=== PATIENT | male | born 1945 | race Caucasian/White ===

== ENCOUNTER 2020-04-11 19:23 | Emergency (ER) | payer OTHER, BC ==
--- OUTSIDE RECORDS SUMMARY | 2020-04-11 19:26 | XMS REPORT | Clinical Summary ---
:1945 Author Organization [facility] Address [address] [place] [id number] Care Team Providers Name Role Phone Asked, No Pcp Primary Care Provider Unavailable Allergies Not on File Medications Not on file Active Problems Not on file Social History Tobacco Use Types Packs/Day Years Used Date Never Assessed Sex Assigned at Date Recorded Not on file Last Filed Vital Signs Not on file Plan of Treatment Health Maintenance Due Date Last Done Comments COLONOSCOPY SCREENING 1996 SHINGLES VACCINES (#1) 1996 65+ PNEUMOCOCCAL VACCINE (1 of 1 - PPSV23) 2011 INFLUENZA VACCINE 12/22/2019 Results Not on fileafter 04/11/2019 Advance Directives For more information, please contact: [phone] Type Date Recorded Patient [employer] Explanati on Advance Directives, Living Will and Medical Power of Trimmer Machine
--- OUTSIDE RECORDS SUMMARY | 2020-04-11 19:27 | XMS REPORT | Continuity of Care Document ---
:1945 Author Organization [facility] t Address [facility] Brothers. [address] [place] [address] Care Team Providers Name Role Phone FLAKITO Primary Care Physician Unavailable SYSTEM, NOT IN Attending Clinician Unavailable KENNEDY Attending Clinician Unavailable Kennedy CARRILLO Attending Clinician Wilma OLMOS Attending Clinician Flakito CARRILLO Attending Clinician FLAKITO Attending Clinician Unavailable Elo DARDEN Attending Clinician Unavailable Rogerio JUAREZ Attending Clinician CLAUDIA Attending Clinician Unavailable Tiffany DARDEN, M Attending Clinician Unavailable Rolf DARDEN, S Attending Clinician Unavailable Jaquan MURRAY Attending Clinician Wild [place] Attending Clinician Andrea RN Attending Clinician Unavailable Kelli DARDEN, T Attending Clinician Unavailable Claudia OLMOS Attending Clinician Unavailable Payers Payer Name Policy Type Policy Number Effective Date Expiration Date S mel[place] POS [id number] 2011 00:00:00 MEDICARE PART A [id number] 2011 AND B 00:00:00 Problems Condition Condition Condition Status Onset Resolution Last Treating Co mments Source Name Details Category Date Date Treatment Clinician Date Other Other Disease Active pancytopen pancytopen 7-12 An derso ia ia 00:00: n 00 Allergies, Adverse Reactions, Alerts Allergy Allergy Status Severity Reaction(s) Onset Inactive Treating Comm ents Source Name Type Date Date Clinician No Known DA Active [facility] Allergie 5-31 Clear s 00:00: [place] 00 [facility] Family History Family Member Diagnosis Comments Start Date Stop Date Source Natural brother -Genitourinary (Bladder, MD Mares Kidney, Prostate, Testicle) Natural sister -Breast cancer Social History Social Habit Start Date Stop Date Quantity Comments Source Sex Assigned At MD James on Cigarettes smoked 2015-12-30 2015-12-30 MD Sotero reynolds current (pack per 00:00:00 00:00:00 day) - Reported Cigarette pack-years 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 History of tobacco 1962 1979 Current smoker MD Mares use 00:00:00 00:00:00 Smoking Status Start Date Stop Date Source Former smoker 2015-12-30 00:00:00 2015-12-30 00:00:00 MD Goetz son Medications Ordered Filled Start Stop Current Ordering Indication Dosage Frequency Signature Comments Components Source Medication Medication Date Date Medication? Clinician (SIG) Name Name UNABLE TO 2020-0 Yes 4{capsu Take 4 MD FIND 9-03 le} capsules Anderso 21:13: by mouth. n 48 Med Name: Feliz fruit SAW 2020-0 Yes 2{capsu Take 2 MD PALMETTO 9-03 le} capsules Anderso ORAL 21:13: by mouth n 31 daily. MAGNESIUM 2020-0 Yes 10mg Take 10 mg MD CHLORIDE 9-03 by mouth Anderso ORAL 21:13: daily. n 31 cholecalcif 2020-0 Yes 400U Take 400 MD melinda, 9-03 Units by Anderso vitamin D3, 21:13: mouth n 400 units 31 daily. tablet chromium 2020-0 Yes 1{capsu Take 1 MD picolinate 9-03 le} capsule by And erso 200 mcg cap 21:13: mouth n 31 daily. beta 2020-0 Yes 50163T Take carotene 01-23 25,000 Anderso 00693 UNIT 21:13: Units by n capsule 31 mouth daily. multivitami 2020-0 Yes 1{capsu Take 1 M D n capsule 01-23 le} capsule by Sotero rso 21:13: mouth n 31 daily. triamcinolo 2020-0 Yes 1{appli Apply 1 MD ne 6-25 cation} applicatio Jacob o (KENALOG) 00:00: n n 0.1% cream 00 topically to affected area(s) as needed. levoFLOXaci 2020-0 Yes Other 500mg Take 1 MD n 5-20 pancytopeni tablet Jacob o (Levaquin) 00:00: a (500 mg) n 500 mg 00 by mouth tablet daily. fluconazole 2020-0 Yes Other 200mg Take 1 MD (DIFLUCAN) 5-20 pancytopeni tablet Anderso 200 mg 00:00: a (200 mg) n tablet 00 by mouth daily. valACYclovi 2020-0 Yes Other 500mg Take 1 MD r (VALTREX) 5-20 pancytopeni tablet Anderso 500 mg 00:00: a (500 mg) n tablet 00 by mouth daily. 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 Body weight 2019-05-08 15:11:29 86.4 kg MD Bishnu enriquez BMI 2019-05-08 15:11:29 28.64 kg/m2 MD Bishnu enriquez Oxygen saturation in 2019-05-08 15:11:29 98 /min MD Mares Arterial blood by Pulse oximetry Procedures Procedure Date / Time Performed Performing Clinician Sour e TOTAL PROTEIN 2019-05-08 14:31:00 Lisa Grubbs MD ALBUMIN LEVEL 2019-05-08 14:31:00 Lisa Grubbs MD CALCIUM LEVEL TOTAL 2019-05-08 14:31:00 Lisa Grubbs MD Bishnu son PHOSPHORUS LEVEL 2019-05-08 14:31:00 Lisa Grubbs MD GLUCOSE, RANDOM 2019-05-08 14:31:00 Lisa Grubbs MD BLOOD UREA NITROGEN 2019-05-08 14:31:00 Lisa Grubbs MD Bishnu son SERUM CREATININE 2019-05-08 14:31:00 Lisa Grubbs MD URIC ACID 2019-05-08 14:31:00 Lisa Grubbs MD FRACTIONATED BILIRUBIN 2019-05-08 14:31:00 Lisa Grubbs MD derson ALKALINE PHOSPHATASE 2019-05-08 14:31:00 Lisa Grubbs MD Sotero rson LACTATE DEHYDROGENASE 2019-05-08 14:31:00 Lisa Grubbs MD And erson ALANINE AMINOTRANSFERASE 2019-05-08 14:31:00 Lisa Grubbs MD ELECTROLYTE PANEL 2019-05-08 14:31:00 Lisa Grubbs MD MAGNESIUM LEVEL 2019-05-08 14:31:00 Lisa Grubbs MD ASPARTATE AMINOTRANSFERASE 2019-05-08 14:31:00 Lisa Grubbs TYPE AND SCREEN 2019-05-08 14:31:00 Lisa Grubbs MD COMPLETE BLOOD COUNT W/ 2019-05-08 14:31:00 Lisa Grubbs MD nderson DIFFERENTIAL SERUM CREATININE 2019-05-08 14:31:00 Silvina Fraga MD Jacob on .GLOMERULAR FILTRATION RATE 2019-05-08 14:31:00 Rashid Fraga MD Results CBC 2019-05-08 14:31:00 Silvina Fraga MD MANUAL DIFFERENTIAL 2019-05-08 14:31:00 Silvina Fraga MD And erson ABORH 2019-05-08 14:31:00 Silvina Fraga MD ANTIBODY SCREEN 2019-05-08 14:31:00 Silvina Fraga MD Andderrek pérez CLOT EXPIRATION DATE 2019-05-08 14:31:00 Silvina Fraga MD TMP INTERPRETATION ANTIBODY 2019-05-08 14:31:00 Rashid Fraga MD Vishnu SCREEN NEGATIVE Plan of Care Planned Activity Planned Date Details Comments Source Future Scheduled 2019-12-22 INFLUENZA VACCINE [facility] 00:00:00 [code = INFLUENZA VACCINE] Future Scheduled 2011 65+ PNEUMOCOCCAL [facility] 00:00:00 VACCINE (1 of 1 - PPSV23) [code = 65+ PNEUMOCOCCAL VACCINE (1 of 1 - PPSV23)] Future Scheduled 1996 COLONOSCOPY SCREENING [facility] 00:00:00 [code = COLONOSCOPY SCREENING] Future Scheduled 1996 SHINGLES VACCINES (#1) [facility] 00:00:00 [code = SHINGLES VACCINES (#1)] Encounters Start End Encounter Admission Attending Care Care Encounter Source Date/Time Date/Time Type Type Clinicians Facility Department ID 2020-03-27 Outpatient SYSTEM, [facility] [id number] 14:00:43 PROVIDER Jacob pérez 2020-01-11 Outpatient SYSTEM, [facility] [id number] 10:56:16 PROVIDER Jacob o elisa 2020-01-24 2020-01-24 Outpatient NIKO BEACH MDA MDA [id number] 16:57:30 17:09:24 Jacob pérez 2020-01-08 2020-01-08 Outpatient ARMANDO FRAGA MDA MDA [id number] 10:58:12 10:58:12 SILVINA pérez 2020-01-08 2020-01-08 Outpatient NIKO [facility] MDA, MDA [id number] 00:00:00 00:00:00 Jacobdiana pérez 2019-12-18 2019-12-18 Outpatient ARMANDO TAYLOR MDA MDA [id number] 00:00:00 00:00:00 KRISTIN pérez Results Test Description Test Time Test Comments Results Result Comments Source TMP Interpretation Antibody Screen Negative 2019-05-08 21:16 :02 Test Item Value Reference Range Interpretation Comme nts TMP At the present FERNANDO Auto time, patient Florin ROGERS by: ANGELICA ROGERS,Dictated Date/Time: Neg plasma shows no 05.08.2019 1 5:16 PM [employer] [facility] Transcribed Date/Time: 05.08.2019 ABSC evidence of RBC 15:16 PM [employer] Electronically Signed By: ANGELICA ROGERS, on Interp alloantibodies. 05.08.2019 1 5:16 PM (test code = 7535) MD MaresAntibody [id number] 18:13:28 Test Item Value Reference Range Interpretation Comments ABSC. (test code = 890-4) Negative ABSC MD [id number] 18:13:27 Test Item Value Reference Range Interpretation Comments ABORh. (test code = 882-1) O POS MD MaresClot Expiration [id number] 18:13:21 Test Item Value Reference Range Interpretation Comments T & S Expiration (test code = 05/11/2019 5318) MD M[id number] 16:00:49 Test Item Value Reference Range Interpretation Comments Total Cells (test code 115 = 19713-1) Neutrophil % (test code 11.0 % 42-66 L The Neutrophil count = 6491) includes Bands. Lymphocyte % (test code 56.0 % 24-44 H = 6194) Monocyte % (test code = 28.0 % 2-7 H 6422) Eosinophil % (test code 1.0 % 1-4 = 5520) Basophil % (test code = 2.0 % 0-1 H 5068) Metamyelocyte % (test 2.0 % <=0.0 H The Me tamyelocyte code = 740-1) count includes Myelocytes. Neutrophil Abs (test 0.22 K/uL 1.7-7.3 L code = 6492) Lymphocyte Abs (test 1.12 K/uL 1-4.8 code = 6195) Monocyte Abs (test code 0.56 K/uL 0.08-0.7 = 6423) Eosinophil Abs (test 0.02 K/uL 0.04-0.4 L code = 5521) Basophil Abs (test code 0.04 K/uL 0-0.1 = 5069) RBC Morph (test code = Present Normal A 6742-1) Anisocytosis (test code Present Not Present A = 702-1) Macrocyte (test code = Present Not Present A 738-5) Slide Comments (test See Note A PLT: Pl atelet code = 5447) morphology norm al with occasional giant platelets seen Lab Interpretation Abnormal (test code = 57118-4) MD Mares.[id number] 16:00:47 Test Item Value Reference Range Interpretation Comments WBC (test code = 2.0 K/uL 4-11 L 6690-2) RBC (test code = 789-8) 3.07 4.50- 6.00 M/uL L Hgb (test code = 718-7) 10.8 14.0- 18.0 gm/dL L Hct (test code = 33.1 % 40-54 L 4544-3) MPV (test code = 787-2) 11.8 fL 4-10.4 H MCH (test code = 785-6) 35.2 pg 27-31 H MCHC (test code = 32.6 31.0- 36.0 gm/dL 786-4) RDW-SD (test code = 56.3 fL 35.1-46.3 H 40333-4) RDW-CV (test code = 14.2 % 12-15.5 788-0) Platelet count (test 95 K/uL 140-440 L code = 777-3) INRBC (test code = 0.0 % <=0.0 The INRBC (instrument 5974) NRBC) value ref lects the enumeration of nucleated red b lood cells contained in a 200uL sampleof whole blood analyzed by the instrument. Thi s value maydiffer from the NRBC value reported in a m anual differential,wh ich is based on a 100 cell differential. Lab Interpretation Abnormal (test code = 95774-1) MD MaresFractionated [id number] 15:45:24 Test Item Value Reference Range Interpretation Comments Bili Total (test 0.8 mg/dL <=1.2 Indocyanine Green (ICG) code = 5096) may cause false ly elevated biliru bin results. Total and direct bilirubin must not be measured from s amples containing indo cyanine green. False el evation of total bilirubin can be seen in patient s with IgG concentrations above 28 g/L. Bili Direct (test 0.2 mg/dL <=0.3 Indocyanin e Green (ICG) code = 5094) may cause false ly elevated biliru bin results. Total and direct bilirubin must not be measured from s amples containing indo cyanine green. Bili Indirect (test 0.6 mg/dL 0-0.9 code = 5095) MD MaresGlomerular Filtration [id number] 15:45:22 Test Item Value Reference Range Interpretation Comments eGFR-AA (test 99 >=60 mL/min/1.73 sq. Normal eGFR: >= 60 code = 8062) m mL/min/1.73 m2N ote: The eGFR is calcula carlito using the CKD-EPI equ ation. The eGFR declines w ith age. eGFR <60 mL/min /1.73 m2 is considered as " decreased". This equation s hould only be used for pat ients 18 and older. Acco rding to the National dney Foundation's Ki dney Disease Outcome Quality Initiative (KDO QI) classification and 2012 Kidney Disease Improving Global Outcomes (KDIGO) Clinical Practi ce Guideline, the stage of CKD should be c ategorized based on estima carlito GFR. Stage Descripti on GFR mL/min/1.73 m21 Normal or high GFR >=902 Mildly de creased GFR 60-893a Mildly to moder ately decreased GFR 45-593b Moderately to s everely decreased GFR 30-444 Severely decrea sed GFR 15-295 Kidney failure <15 eGFR-ITZEL (test 86 >=60 mL/min/1.73 sq. Mei l eGFR: >= 60 code = 8063) m mL/min/1.73 m2N ote: The eGFR is calcula carlito using the CKD-EPI equ ation. The eGFR declines w ith age. eGFR <60 mL/min /1.73 m2 is considered as " decreased". This equation s hould only be used for pat ients 18 and older. Acco rding to the National Ki dney Foundation's Ki dney Disease Outcome Quality Initiative (KDO QI) classification and 2012 Kidney Disease Improving Global Outcomes (KDIGO) Clinical Practi ce Guideline, the stage of CKD should be c ategorized based on estima carlito GFR. Stage Descripti on GFR mL/min/1.73 m21 Normal or high GFR >=902 Mildly de creased GFR 60-893a Mildly to moder ately decreased GFR 45-593b Moderately to s everely decreased GFR 30-444 Severely decrea sed GFR 15-295 Kidney failure <15 MD MaresGlucose, [id number] 15:45:21 Test Item Value Reference Range Interpretation Comments Glucose Random (test 92 mg/dL 70-199 Effecti ve 12/17/15, the code = 9360) glucose referen ce intervals have been updated based o n [place] [employer] francheska delines (Standards of M edical Care in Diabete s 2016. Diabetes Care 2 016; 39: S13-S22).Fastin g blood glucose:Normal: 70 99 mg/dLImpaire d fasting glucose (increa sed risk for diabetes or pre-diabetes): 100 125 mg/dLDiabet es mellitus: >/=1 26 mg/dL Random blood glucose:Normal: 70 199 mg/dLNote: Random glucose >100 mg /dL is associated with increased risk for diabetes MD MaresMagnesium [id number] 15:45:20 Test Item Value Reference Range Interpretation Comments Magnesium (test code = 6359) 2.1 mg/dL 1.6-2.6 MD MaresTotal [id number] 15:45:19 Test Item Value Reference Range Interpretation Comments Total Protein (test code = 7649) 8.0 6.4- 8.3 gm/dL MD MaresUric [id number] 15:45:18 Test Item Value Reference Range Interpretation Comments Uric Acid (test code = 7955) 6.1 mg/dL 3.4-7 MD [id number] 15:45:17 Test Item Value Reference Range Interpretation Comments LDH (test code = 161 U/L 135-225 Results gre ater than 1800 6111) U/L may not be reliable due to matrix effec t with extended diluti on as it exceeds the man ufacturer s recommended l imit. Caution should be exercised when interpreti ng such values and done in conjunction wit h clinical context. MD MaresPhosphorus [id number] 15:45:16 Test Item Value Reference Range Interpretation Comments Phosphorus (test code = 6817) 2.8 mg/dL 2.5-4.5 MD [id number] 15:45:15 Test Item Value Reference Range Interpretation Comments BUN (test code = 5055) 14 mg/dL 6-23 MD MaresAlkaline [id number] 15:45:14 Test Item Value Reference Range Interpretation Comments Alk Phos (test code = 4768) 58 U/L 40-129 MD MaresCalcium [id number] 15:45:13 Test Item Value Reference Range Interpretation Comments Calcium Lvl (test code = 5258) 9.1 mg/dL 8.4-10.2 MD MaresAlbumin [id number] 15:45:12 Test Item Value Reference Range Interpretation Comments Albumin Lvl (test code = 4763) 4.4 3.5- 5.2 gm/dL MD MaresAlanine [id number] 15:45:11 Test Item Value Reference Range Interpretation Comments ALT (test code = 4705) 10 U/L <=41 MD MaresAspartate [id number] 15:45:10 Test Item Value Reference Range Interpretation Comments AST (test code = 4731) 21 U/L <=40 MD MaresElectrolyte [id number] 15:45:09 Test Item Value Reference Range Interpretation Comments Sodium Lvl (test code = 7355) 138 136- 145 mEq/L Potassium Lvl (test code = 6854) 3.9 3.5- 5.1 mEq/L Chloride (test code = 5279) 104 98- 107 mEq/L CO2 (test code = 5227) 28 22- 29 mEq/L Anion Gap (test code = 9325) 6 4- 14 mEq/L MD Mares.Serum [id number] 15:45:08 Test Item Value Reference Range Interpretation Comments Creatinine (test code = 5399) 0.86 mg/dL 0.67-1.17 MD Mares- XR ABDOMEN 1 [id number] 15:38:00 Name: YOAN SIEGEL [facility] : 1945 Age/S: 73 / M [id number] Unit #: [id number] Loc: [place] [address] Phys: Cayetano Fabian MD Acct: [id number] Dis Date: Status: ADM IN PHONE #: [phone] Exam Date: 10/22/2018 1455 FAX #: Reason: sepsis post colonoscopy EXAMS: CPT: [id number] XR ABDOMEN 1 V 79369 Fluoro Time: DAP (Gy m2): Air Kerma (mGy): Location code: B2 Abdomen one view HISTORY: Abdominal pain. Sepsis, post colonoscopy COMMENT: The abdominal radiograph shows a non-obstructive bowel gas pattern. There is no pneumatosis or mass effect. There are no radiopaque densities noted. There are degenerative changes in the bones. IMPRESSION: 1. Nonspecific bowel gas pattern. No free air. [id number] Reported and signed by: Guido Oscar M.D. CC: Cayetano Fabian MD; Lucas Mcclellan MD; Sotero Catherine MD PAGE 1 Signed Report Name: YOAN SIEGEL [place] : 1945 Age/S: 73 / M [id number] [address] Unit #: [id number] Loc: [place] [address] Phys: Cayetano Fabian MD Acct: [id number] Dis Date: Status: ADM IN PHONE #: [phone] Exam Date: 10/22/2018 1455 FAX #: Reason: sepsis post colonoscopy EXAMS: CPT: [id number] XR ABDOMEN 1 V 83054 Fluoro Time: DAP (Gy m2): Air Kerma (mGy): <Continued> Technologist: RT Ilene(R) Trnscb Date/Time: 10/22/2018 (1532) [email or web address] Orig Print D/T: S: 10/22/2018 (7509) PAGE 2 Signed Report CBC W/AUTO [id number] 07:12:00 Test Item Value Reference Range Interpretation Comments WHITE BLOOD CELL (test code = 3.6 K/mm3 3.5-11.0 N WBC) RED BLOOD CELL (test code = RBC) 2.67 M/mm3 4.70-6.10 L HEMOGLOBIN (test code = HGB) 9.7 G/DL 12.3-15.9 L HEMATOCRIT (test code = HCT) 29.4 % 35.8-46.7 L MEAN CELL VOLUME (test code = 110.1 Fl 86.3-98.9 H MCV) MEAN CELL HGB (test code = MCH) 36.3 pg 28.9-34.4 H MEAN CELL HGB CONCETRATION (test 33.0 G/DL 32.1-34.5 N code = MCHC) RED CELL DISTRIBUTION WIDTH 13.8 SD 11.5-14.5 N (test code = RDW) PLATELET COUNT (test code = PLT) 72.0 K/mm3 150-450 L MEAN PLATELET VOLUME (test code 12.60 fL 7.0-9.6 H = MPV) MANUAL DIFF REQUIRED (test code YES DIFF/SCN CRITERIA = MDIFF) WBC [id number] 07:12:00 Test Item Value Reference Range Interpretation Comments SEGMENTED NEUTROPHILS 44 % 40-75 N (test code = SEG) LYMPHOCYTE (test code = 35 % 12.6-43.5 N LYMPH) MONOCYTE (test code = MON) 20 % 4.2-12.7 H BASOPHIL (test code = 1 % 0-2.6 N BASO) PLATELET ESTIMATE (test DECREASED THOUSAND ADEQUATE code = PLTEST) PLATELET MORPHOLOGY (test NORMAL code = PLTMORPH) BASIC METABOLIC [id number] 06:56:00 Test Item Value Reference Range Interpretation Comments SODIUM (test code = NA) 140 mmol/L 134-147 N POTASSIUM (test code = 3.7 mmol/L 3.4-5.0 N K) CHLORIDE (test code = 109 mmol/L 100-108 H CL) CARBON DIOXIDE (test 25 mmol/L 21-32 N code = CO2) ANION GAP (test code = 6.0 GAP calc 4.0-15.0 N GAP) GLUCOSE (test code = 82 MG/DL 70-110 N GLU) BLOOD UREA NITROGEN 10 MG/DL 7-18 N (test code = BUN) GLOMERULAR FILTRATION >=60 max estimate >60 RATE (test code = GFR) estGFR CREATININE (test code = 0.9 MG/DL 0.8-1.3 N CREAT) CALCIUM (test code = CA) 8.0 MG/DL 8.5-10.1 L CBC W/AUTO [id number] 06:53:00 Test Item Value Reference Range Interpretation Comments WHITE BLOOD CELL (test code = 3.6 K/mm3 3.5-11.0 N WBC) RED BLOOD CELL (test code = RBC) 2.67 M/mm3 4.70-6.10 L HEMOGLOBIN (test code = HGB) 9.7 G/DL 12.3-15.9 L HEMATOCRIT (test code = HCT) 29.4 % 35.8-46.7 L MEAN CELL VOLUME (test code = 110.1 Fl 86.3-98.9 H MCV) MEAN CELL HGB (test code = MCH) 36.3 pg 28.9-34.4 H MEAN CELL HGB CONCETRATION (test 33.0 G/DL 32.1-34.5 N code = MCHC) RED CELL DISTRIBUTION WIDTH 13.8 SD 11.5-14.5 N (test code = RDW) PLATELET COUNT (test code = PLT) 72.0 K/mm3 150-450 L MEAN PLATELET VOLUME (test code 12.60 fL 7.0-9.6 H = MPV) MANUAL DIFF REQUIRED (test code YES DIFF/SCN CRITERIA = MDIFF) WBC [id number] 06:53:00 Test Item Value Reference Range Interpretation Comments SEGMENTED NEUTROPHILS (test code = SEG) % 40-75 LYMPHOCYTE (test code = LYMPH) % 12.6-43.5 CBC W/AUTO [id number] 06:53:00 Test Item Value Reference Range Interpretation Comments WHITE BLOOD CELL (test code = 3.6 K/mm3 3.5-11.0 N WBC) RED BLOOD CELL (test code = RBC) 2.67 M/mm3 4.70-6.10 L HEMOGLOBIN (test code = HGB) 9.7 G/DL 12.3-15.9 L HEMATOCRIT (test code = HCT) 29.4 % 35.8-46.7 L MEAN CELL VOLUME (test code = 110.1 Fl 86.3-98.9 H MCV) MEAN CELL HGB (test code = MCH) 36.3 pg 28.9-34.4 H MEAN CELL HGB CONCETRATION (test 33.0 G/DL 32.1-34.5 N code = MCHC) RED CELL DISTRIBUTION WIDTH 13.8 SD 11.5-14.5 N (test code = RDW) PLATELET COUNT (test code = PLT) 72.0 K/mm3 150-450 L MEAN PLATELET VOLUME (test code 12.60 fL 7.0-9.6 H = MPV) MANUAL DIFF REQUIRED (test code YES DIFF/SCN CRITERIA = MDIFF) WBC [id number] 06:53:00 Test Item Value Reference Range Interpretation Comments SEGMENTED NEUTROPHILS (test code = SEG) % 40-75 LYMPHOCYTE (test code = LYMPH) % 12.6-43.5 CBC W/MANUAL [id number] 10:04:00 Test Item Value Reference Range Interpretation Comments WHITE BLOOD CELL (test code = 5.4 K/mm3 3.5-11.0 N WBC) RED BLOOD CELL (test code = RBC) 2.93 M/mm3 4.70-6.10 L HEMOGLOBIN (test code = HGB) 10.7 G/DL 12.3-15.9 L HEMATOCRIT (test code = HCT) 32.5 % 35.8-46.7 L MEAN CELL VOLUME (test code = 110.9 Fl 86.3-98.9 H MCV) MEAN CELL HGB (test code = MCH) 36.5 pg 28.9-34.4 H MEAN CELL HGB CONCETRATION (test 32.9 G/DL 32.1-34.5 N code = MCHC) RED CELL DISTRIBUTION WIDTH (test 14.0 SD 11.5-14.5 N code = RDW) PLATELET COUNT (test code = PLT) 122.0 K/mm3 150-450 L MEAN PLATELET VOLUME (test code = 12.10 fL 7.0-9.6 H MPV) SEGMENTED NEUTROPHILS (test code 67 % 40-75 N = SEG) LYMPHOCYTE (test code = LYMPH) 27 % 12.6-43.5 N MONOCYTE (test code = MON) 6 % 4.2-12.7 N EOSINOPHIL (test code = EOS) 0 % 0.0-5.2 N CBC W/MANUAL [id number] 08:03:00 Test Item Value Reference Range Interpretation Comments WHITE BLOOD CELL (test code = 5.4 K/mm3 3.5-11.0 N WBC) RED BLOOD CELL (test code = RBC) 2.93 M/mm3 4.70-6.10 L HEMOGLOBIN (test code = HGB) 10.7 G/DL 12.3-15.9 L HEMATOCRIT (test code = HCT) 32.5 % 35.8-46.7 L MEAN CELL VOLUME (test code = 110.9 Fl 86.3-98.9 H MCV) MEAN CELL HGB (test code = MCH) 36.5 pg 28.9-34.4 H MEAN CELL HGB CONCETRATION (test 32.9 G/DL 32.1-34.5 N code = MCHC) RED CELL DISTRIBUTION WIDTH (test 14.0 SD 11.5-14.5 N code = RDW) PLATELET COUNT (test code = PLT) 122.0 K/mm3 150-450 L MEAN PLATELET VOLUME (test code = 12.10 fL 7.0-9.6 H MPV) SEGMENTED NEUTROPHILS (test code % 40-75 = SEG) LYMPHOCYTE (test code = LYMPH) % 12.6-43.5 BASIC METABOLIC [id number] 07:43:00 Test Item Value Reference Range Interpretation Comments SODIUM (test code = NA) 141 mmol/L 134-147 N POTASSIUM (test code = 3.6 mmol/L 3.4-5.0 N K) CHLORIDE (test code = 110 mmol/L 100-108 H CL) CARBON DIOXIDE (test 24 mmol/L 21-32 N code = CO2) ANION GAP (test code = 7.0 GAP calc 4.0-15.0 N GAP) GLUCOSE (test code = 95 MG/DL 70-110 N GLU) BLOOD UREA NITROGEN 13 MG/DL 7-18 N (test code = BUN) GLOMERULAR FILTRATION >=60 max estimate >60 RATE (test code = GFR) estGFR CREATININE (test code = 1.0 MG/DL 0.8-1.3 N CREAT) CALCIUM (test code = CA) 8.3 MG/DL 8.5-10.1 L BASIC METABOLIC [id number] 07:38:00 Test Item Value Reference Range Interpretation Comments SODIUM (test code = NA) 141 mmol/L 134-147 N POTASSIUM (test code = K) 3.6 mmol/L 3.4-5.0 N CHLORIDE (test code = CL) 110 mmol/L 100-108 H CARBON DIOXIDE (test code = CO2) 24 mmol/L 21-32 N ANION GAP (test code = GAP) 7.0 GAP calc 4.0-15.0 N GLUCOSE (test code = GLU) 95 MG/DL 70-110 N BLOOD UREA NITROGEN (test code = 13 MG/DL 7-18 N BUN) GLOMERULAR FILTRATION RATE (test estGFR >60 code = GFR) CREATININE (test code = CREAT) MG/DL 0.8-1.3 CALCIUM (test code = CA) 8.3 MG/DL 8.5-10.1 L URINALYSIS [id number] 02:34:00 Test Item Value Reference Range Interpretation Comments UA GLUCOSE DIPSTICK (test NEGATIVE mg/dL NEG code = DGLUU) UA BILIRUBIN DIPSTICK (test NEGATIVE mg/dL NEG code = BILU) UA KETONE DIPSTICK (test NEGATIVE mg/dL NEG code = KETU) UA SPECIFIC GRAVITY (test 1.025 SG 1.005-1.030 code = SGU) UA BLOOD DIPSTICK (test NEGATIVE mg/DL NEG code = DESMOND) UA PH DIPSTICK (test code = 5.5 pH UNITS 5.0-7.0 ANA CRISTINA) UA PROTEIN DIPSTICK (test NEGATIVE mg/dL NEG code = PROU) UA UROBILINIOGEN DIPSTICK 0.2 mg/dL <2.0 (test code = URO) UA NITRITE DIPSTICK (test NEGATIVE SCREEN NEG code = RUPERT) UA LEUKOCYTE ESTERASE NEGATIVE Leuk/mcL NEGATIVE DIPSTICK (test code = LEUU) Urine Specimen Type: Clean CatchCOMPREHENSIVE METABOLIC [id number] 22:48:00 Test Item Value Reference Range Interpretation Comments SODIUM (test code = NA) 138 mmol/L 134-147 N POTASSIUM (test code = 3.6 mmol/L 3.4-5.0 N K) CHLORIDE (test code = 106 mmol/L 100-108 N CL) CARBON DIOXIDE (test 24 mmol/L 21-32 N code = CO2) ANION GAP (test code = 8.0 GAP calc 4.0-15.0 N GAP) GLUCOSE (test code = 102 MG/DL 70-110 N GLU) BLOOD UREA NITROGEN 18 MG/DL 7-18 N (test code = BUN) GLOMERULAR FILTRATION >=60 max estimate >60 RATE (test code = GFR) estGFR CREATININE (test code = 1.1 MG/DL 0.8-1.3 N CREAT) TOTAL PROTEIN (test code 8.3 G/DL 6.4-8.2 H = PROT) ALBUMIN (test code = 4.1 G/DL 3.4-5.0 N ALB) GLOBULIN (test code = 4.2 GM/dL GLOB) ALBUMIN/GLOBULIN RATIO 1.0 RATIO 1.2-2.2 L (test code = A/G) CALCIUM (test code = CA) 8.7 MG/DL 8.5-10.1 N BILIRUBIN TOTAL (test 1.10 MG/DL 0.2-1.2 N code = BILT) SGOT/AST (test code = 17 Unit/L 15-37 N AST) SGPT/ALT (test code = 13 Unit/L 12-78 N ALT) ALKALINE PHOSPHATASE 64 Unit/L 50-136 N TOTAL (test code = ALKP) CBC W/AUTO [id number] 22:37:00 Test Item Value Reference Range Interpretation Comments WHITE BLOOD CELL (test code = 4.5 K/mm3 3.5-11.0 N WBC) RED BLOOD CELL (test code = RBC) 3.15 M/mm3 4.70-6.10 L HEMOGLOBIN (test code = HGB) 11.6 G/DL 12.3-15.9 L HEMATOCRIT (test code = HCT) 33.9 % 35.8-46.7 L MEAN CELL VOLUME (test code = 107.6 Fl 86.3-98.9 H MCV) MEAN CELL HGB (test code = MCH) 36.8 pg 28.9-34.4 H MEAN CELL HGB CONCETRATION (test 34.2 G/DL 32.1-34.5 N code = MCHC) RED CELL DISTRIBUTION WIDTH (test 13.7 SD 11.5-14.5 N code = RDW) PLATELET COUNT (test code = PLT) 134.0 K/mm3 150-450 L MEAN PLATELET VOLUME (test code = 12.80 fL 7.0-9.6 H MPV) NEUTROPHIL % (test code = NT%) 68.0 % 40-76 N LYMPHOCYTE % (test code = LY%) 11.9 % 20.5-51.1 L MONOCYTE % (test code = MO%) 17.9 % 1.7-9.3 H EOSINOPHIL % (test code = EO%) 0.2 % 0.0-6.0 N BASOPHIL % (test code = BA%) 2.0 % 0.0-2.0 N NEUTROPHIL # (test code = NT#) 3.04 K/mm3 1.8-7.6 N LYMPHOCYTE # (test code = LY#) 0.5 K/mm3 0.6-3.0 L MONOCYTE # (test code = MO#) 0.8 K/mm3 0.2-1.5 N EOSINOPHIL # (test code = EO#) 0.0 K/mm3 0.0-0.4 N BASOPHIL # (test code = BA#) 0.1 K/mm3 0.0-0.2 N MANUAL DIFF REQUIRED (test code = NO DIFF/SCN CRITERIA MDIFF) TROPONIN I [id number] 22:35:00 Test Item Value Reference Range Interpretation Comments TROPONIN I RAPID 0.00 ng/mL 0.00-0.08 N - The use o f serial (test code = sampling and te sting TROPIRAP) protocol is a recommended pra ctice- An elevated tro ponin level alone is often not sufficient for diagnosis of my ocardial infarction. LACTIC ACID [id number] 22:27:00 Test Item Value Reference Range Interpretation Comments LACTIC ACID POC (test code = 0.80 MMOL/L 0.90-1.70 L LACTP)
[2020-04-11] MEDS ORDERED: ACETAMINOPHEN 325 MG TABLET ONE (21:06)
[2020-04-11 21:17] LABS: Absolute Lymphocytes (CBC) 1.1 K/uL (0.7-4.9); Basophils % 0.8 % (0-1.3); Hematocrit 31.1 % (39.6-49.0); Lymphocytes % 26.2 % (15.3-44.8); MPV 10.4 fL (7.6-11.3); RBC Red Blood Cell Count 2.96 M/uL (4.33-5.43)
[2020-04-11 21:18] LABS: Protime INR 1.19
[2020-04-11] MEDS ORDERED: NA CHLORIDE 0.9% 1,000 ML ONE (21:23)
[2020-04-11 21:37] LABS: ALT/SGPT 12 U/L (12-78); AST/SGOT 17 U/L (15-37); Albumin 3.7 g/dL (3.4-5.0); Alkaline Phosphatase 60 U/L (45-117); Amylase 40 U/L (25-115); BUN Blood Urea Nitrogen 13 mg/dL (7-18); Bicarbonate 28 mmol/L (21-32); Bilirubin Direct 0.3 mg/dL (0-0.2); Bilirubin Total 1.1 mg/dL (0.2-1.0); CKMB Creatine Kinase MB < 1.0 ng/mL (0.3-3.6); Creatine Phosphokinase 30 U/L (39-308); Glucose Level 96 mg/dL (74-106); Lipase 62 U/L (73-393); Potassium 3.7 mmol/L (3.5-5.1); Sodium Level 138 mmol/L (136-145); Troponin (Emerg Dept Use Only) < 0.02 ng/mL (0.0-0.045)
[2020-04-11 21:42] LABS: Urine Bacteria <20 /HPF (NONE SEEN); Urine Culture Reflex Order NOT NEEDED; Urine RBC <5 /HPF (NONE SEEN)
[2020-04-11 21:43] LABS: Urine Blood NEGATIVE (NEG); Urine Glucose NEGATIVE (NEG); Urine Protein NEGATIVE (NEG); Urine Specific Gravity 1.025 (1.005-1.030)
[2020-04-11 22:17] LABS: Anisocytosis 1+; Blood Morphology Comment NOTED (NOT SEEN); Platelet Estimate ADEQ; Stomatocytes 1+
--- NOTE | 2020-04-12 02:10 | EDPHYS ---
Physician Documentation [facility] Name: Sridhar Martinez Age: 75 yrs Sex: Male : 1945 Arrival Date: 04/11/2020 Time: 19:27 Bed 2 Private MD: ED Physician Cayetano Appiah HPI: 04/11 21:36 This 75 yrs old Male presents to ER via Ambulatory with complaints of Fever. mh7 21:36 The patient reports fever, that was measured at 101.7 degrees Fahrenheit. Onset: The mh7 symptoms/episode began/occurred today, at 16:30. Modifying factors: recent hernia repair. Associated signs and symptoms: Pertinent negatives: abdominal pain, altered mental status, arthralgias, backache, chest pain, chills, cough, diarrhea, earache, headache, hemoptysis, myalgias, nausea, night sweats, runny nose, sinus congestion, sinus drainage, skin rash, shortness of breath, sore throat, swelling, vomiting. Severity of symptoms: At their worst the symptoms were moderate today, in the emergency department the symptoms have improved markedly. Patient had left inguinal hernia repair yesterday and started to have fever today. Denies any chest pain, abdominal pain, SOB, nausea, vomiting, diarrhea, or dysuria.. 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 - Social history:: Smoking status: Patient denies any tobacco usage or history of. ROS: 21:36 Eyes: Negative for injury, pain, redness, and discharge, ENT: Negative for injury, mh7 pain, and discharge, Neck: Negative for injury, pain, and swelling, Cardiovascular: Negative for chest pain, palpitations, and edema, Respiratory: Negative for shortness of breath, cough, wheezing, and pleuritic chest pain, Abdomen/GI: Negative for abdominal pain, nausea, vomiting, diarrhea, and constipation, Back: Negative for injury and pain, : Negative for injury, bleeding, discharge, and swelling, MS/Extremity: Negative for injury and deformity, Skin: Negative for injury, rash, and discoloration, Neuro: Negative for headache, weakness, numbness, tingling, and seizure, Psych: Negative for depression, anxiety, suicide ideation, homicidal ideation, and hallucinations, Allergy/Immunology: Negative for hives, rash, and allergies, Endocrine: Negative for neck swelling, polydipsia, polyuria, polyphagia, and marked weight changes, Hematologic/Lymphatic: Negative for swollen nodes, abnormal bleeding, and unusual bruising. Exam: 21:36 Constitutional: This is a well developed, well nourished patient who is awake, alert, mh7 and in no acute distress. Head/Face: Normocephalic, atraumatic. Eyes: Pupils equal round and reactive to light, extra-ocular motions intact. Lids and lashes normal. Conjunctiva and sclera are non-icteric and not injected. Cornea within normal limits. Periorbital areas with no swelling, redness, or edema. Neck: Trachea midline, no thyromegaly or masses palpated, and no cervical lymphadenopathy. Supple, full range of motion without nuchal rigidity, or vertebral point tenderness. No Meningismus. Chest/axilla: Normal chest wall appearance and motion. Nontender with no deformity. No lesions are appreciated. Cardiovascular: Regular rate and rhythm with a normal S1 and S2. No gallops, murmurs, or rubs. Normal PMI, no JVD. No pulse deficits. Respiratory: Lungs have equal breath sounds bilaterally, clear to auscultation and percussion. No rales, rhonchi or wheezes noted. No increased work of breathing, no retractions or nasal flaring. 21:36 Back: No spinal tenderness. No costovertebral tenderness. Full range of motion. Skin: Warm, dry with normal turgor. Normal color with no rashes, no lesions, and no evidence of cellulitis. MS/ Extremity: Pulses equal, no cyanosis. Neurovascular intact. Full, normal range of motion. Neuro: Awake and alert, GCS 15, oriented to person, place, time, and situation. Cranial nerves II-XII grossly intact. Motor strength 5/5 in all extremities. Sensory grossly intact. Cerebellar exam normal. Normal gait. Psych: Awake, alert, with orientation to person, place and time. Behavior, mood, and affect are within normal limits. 21:36 Abdomen/GI: Inspection: scar(s), are noted in the left lower quadrant, left inguinal incision is clean, dry, intact, mild tenderness, no erythema, swelling, discharge or induration, Bowel sounds: normal, in all quadrants, Palpation: mild abdominal tenderness, in the left inguinal area at surgical site, Rectal exam: the exam is deferred, because of patient request, Indicators: McBurney's point is not tender, Gallo's sign is negative, Rovsing's sign is negative, Obturator sign is negative, Psoas sign is negative, Liver: no appreciated palpable abnormalities, Hernia: not appreciated. Vital Signs: 19:32 BP 137 / 77; Pulse 95; Resp 17; Temp 100.6; Pulse Ox 97% ; Weight 80.29 kg; Height 5 ll1 ft. 10 in. (177.80 cm); Pain 2/10; 21:22 BP 135 / 72; Pulse 82; Resp 18; Temp 100.4; Pulse Ox 100% on R/A; rv 21:48 BP 135 / 72; Pulse 80; Resp 19; Pulse Ox 99% ; rr5 21:48 Temp 98.8; rr5 23:42 BP 120 / 63; Pulse 76; Resp 16; Pulse Ox 99% ; rr5 04/12 00:30 BP 118 / 69; Pulse 73; Resp 16; Pulse Ox 99% on R/A; rv 01:47 BP 139 / 75; Pulse 74; Resp 16; Temp 98.8; Pulse Ox 99% on R/A; rv 02:21 BP 126 / 74; Pulse 76; Resp 16; Temp 98.5; Pulse Ox 100% on R/A; rv 04/11 19:32 Body Mass Index 25.40 (80.29 kg, 177.80 cm) ll1 MDM: 04/11 20:51 Patient medically screened. 7 04/12 02:06 Differential diagnosis: viral Infection, bacterial infection, pneumonia UTI, post mh7 operative fever, post operative infection. Data reviewed: vital signs, nurses notes, lab test result(s), radiologic studies, CT scan, plain films. Data interpreted: Pulse oximetry: on room air is 99 %. Interpretation: normal. Counseling: I had a detailed discussion with the patient and/or guardian regarding: the historical points, exam findings, and any diagnostic results supporting the discharge/admit diagnosis, the presence of at least one elevated blood pressure reading (>120/80) during this emergency department visit, lab results, radiology results, the need for outpatient follow up, to return to the emergency department if symptoms worsen or persist or if there are any questions or concerns that arise at home. Response to treatment: the patient's symptoms have resolved after treatment, the patient's blood pressure is in an acceptable range, mental status has returned to baseline, the patient no longer shows bradycardia, the patient is not short of breath, the patient is not tachycardic, the patient's pain is gone, the patient's temperature has normalized, the patient is now symptom free. Refusal of service: The patient/guardian displays adequate decision making capability and despite a detailed discussion of alternatives, benefits, risks, and consequences refuses: Admission to the hospital for further work-up and treatment. 04/11 20:51 Order name: Amylase, Serum [facility] 04/11 20:51 Order name: Basic Metabolic Panel [facility] 04/11 20:51 Order name: Blood Culture Adult (2) [facility] 04/11 20:51 Order name: CBC with Diff [facility] 04/11 20:51 Order name: Ckmb [facility] 04/11 20:51 Order name: CPK [facility] 04/11 20:51 Order name: Lactate [facility] 04/11 20:51 Order name: LFT's [facility] 04/11 20:51 Order name: Lipase; Complete Time: 21:59 [facility] 04/11 20:51 Order name: Procalcitonin; Complete Time: 21:59 [facility] 04/11 20:51 Order name: Protime (+inr); Complete Time: 21:59 [facility] 04/11 20:51 Order name: Ptt, Activated; Complete Time: 21:59 [facility] 04/11 20:51 Order name: Troponin (emerg Dept Use Only); Complete Time: 21:59 [facility] 04/11 20:51 Order name: Urine Microscopic Only; Complete Time: 21:59 [facility] 04/11 20:52 Order name: Amylase; Complete Time: 21:59 [facility] 04/11 20:52 Order name: Basic Metabolic Panel; Complete Time: 21:59 [facility] 04/11 20:52 Order name: Blood Culture [facility] 04/11 20:52 Order name: CBC with Automated Diff; Complete Time: 22:23 [facility] 04/11 20:52 Order name: CKMB Creatine Kinase MB; Complete Time: 21:59 [facility] 04/11 20:52 Order name: Creatine Phosphokinase; Complete Time: 21:59 [facility] 04/11 20:52 Order name: Lactate; Complete Time: 21:59 [facility] 04/11 20:52 Order name: Liver (Hepatic) Function; Complete Time: 21:59 [facility] 04/11 21:20 Order name: Urine Dipstick--Ancillary (enter results); Complete Time: 21:59 [facility] 04/11 21:20 Order name: Manual Differential; Complete Time: 22:23 [facility] 04/11 22:39 Order name: D-Dimer; Complete Time: 23:29 [facility] 04/11 22:39 Order name: Chest Single View XRAY [facility] 04/11 23:38 Order name: CT Chest For PE Angio [facility] 04/11 20:51 Order name: Accucheck; Complete Time: 21:46 [facility] 04/11 20:51 Order name: Cardiac monitoring; Complete Time: 21:17 [facility] 04/11 20:51 Order name: EKG - Nurse/Tech; Complete Time: 21:22 [facility] 04/11 20:51 Order name: IV Saline Lock - Large Bore; Complete Time: 21:17 [facility] 04/11 20:51 Order name: Labs collected and sent; Complete Time: 21:17 [facility] 04/11 20:51 Order name: O2 Per Protocol; Complete Time: 21:17 [facility] 04/11 20:51 Order name: O2 Sat Monitoring; Complete Time: 21:17 [facility] 04/11 20:51 Order name: Urine Dipstick-Ancillary (obtain specimen); Complete Time: 21:17 [facility] Administered Medications: 04/11 21:00 Drug: Tylenol 650 mg Route: PO; 04/12 02:21 Follow up: Response: No adverse reaction 04/11 21:15 Drug: NS 0.9% (30 ml/kg) 30 ml/kg Route: IV; Rate: bolus; Site: left antecubital; 04/12 02:23 Follow up: IV Status: Completed infusion; IV Intake: 1000ml rv Disposition: 04/12/20 02:09 Discharged to Home. Impression: Fever, unspecified. - Condition is Stable. - Discharge Instructions: Fever, Adult. - Medication Reconciliation Form, Thank You Letter, Antibiotic Education, Prescription Opioid Use form. - Follow up: Private Physician; When: 1 - 2 days; Reason: Worsening of condition, Recheck today's complaints, Continuance of care, Re-evaluation by your physician. - Problem is new. - Symptoms are resolved. Signatures: Dispatcher [employer] [facility] Orlando Alcaraz, RN RN rv Xena Valdez RN RN ll1 Cayetano Appiah MD MD mh7 Corrections: (The following items were deleted from the chart) 04/11 21:25 20:52 Chest Single View+RAD.RAD.BRZ ordered. [facility] 04/12 02:23 02:09 04/12/2020 02:09 Discharged to Home. Impression: Fever, unspecified. Condition is rv Stable. Forms are Medication Reconciliation Form, Thank You Letter, Antibiotic Education, Prescription Opioid Use. Follow up: Private Physician; When: 1 - 2 days; Reason: Worsening of condition, Recheck today's complaints, Continuance of care, Re-evaluation by your physician. Problem is new. Symptoms are resolved. mh7
--- NOTE | 2020-04-12 02:10 | ER ---
Nurse's Notes [facility] Name: Sridhar Martinez Age: 75 yrs Sex: Male : 1945 Arrival Date: 04/11/2020 Time: 19:27 Bed 2 Private MD: Diagnosis: Fever, unspecified Presentation: 04/11 19:32 Chief complaint: Patient states: Fever for 1 day. Had surgery yesterday at noon for ll1 hernia repair. Coronavirus screen: Client denies travel out of the [place] in the last 14 days. At this time, the client does not indicate any symptoms associated with coronavirus-19. Ebola Screen: Patient denies travel to an Ebola-affected area in the 21 days before illness onset. Initial Sepsis Screen: Does the patient meet any 2 criteria? No. Patient's initial sepsis screen is negative. Does the patient have a suspected source of infection? Yes: Skin breakdown/wound. Risk Assessment: Do you want to hurt yourself or someone else? Patient reports no desire to harm self or others. Onset of symptoms was April 11, 2020. 19:32 Method Of Arrival: Ambulatory [facility] 19:32 Acuity: TIFFANY 3 ll1 Triage Assessment: 21:18 General: Appears uncomfortable, Behavior is calm, cooperative. Pain: Complains of pain rv in abdomen. EENT: No signs and/or symptoms were reported regarding the EENT system. Neuro: Level of Consciousness is awake, alert, obeys commands, Oriented to person, place, time, situation. Cardiovascular: Patient's skin is warm and dry. Respiratory: Airway is patent Breath sounds are clear bilaterally. Derm: Skin is intact. 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 - Social history:: Smoking status: Patient denies any tobacco usage or history of. Screenin:18 Abuse screen: Denies threats or abuse. Denies injuries from another. Nutritional rv screening: No deficits noted. Tuberculosis screening: No symptoms or risk factors identified. Fall Risk None identified. Assessment: 22:03 Reassessment: Patient appears in no apparent distress at this time. Patient is alert, rr5 oriented x 3, equal unlabored respirations, skin warm/dry/pink. awaiting for review. 23:35 Reassessment: Patient appears in no apparent distress at this time. Patient is alert, rr5 oriented x 3, equal unlabored respirations, skin warm/dry/pink. review by ED provider D dimer elevated, spoke to patient and family member agreed to do CT PE angio. 04/12 01:30 Reassessment: Patient appears in no apparent distress at this time. Patient is alert, rr5 oriented x 3, equal unlabored respirations, skin warm/dry/pink. awaiting for CT PE angio result. Vital Signs: 04/11 19:32 BP 137 / 77; Pulse 95; Resp 17; Temp 100.6; Pulse Ox 97% ; Weight 80.29 kg; Height 5 ll1 ft. 10 in. (177.80 cm); Pain 2/10; 21:22 BP 135 / 72; Pulse 82; Resp 18; Temp 100.4; Pulse Ox 100% on R/A; rv 21:48 BP 135 / 72; Pulse 80; Resp 19; Pulse Ox 99% ; rr5 21:48 Temp 98.8; rr5 23:42 BP 120 / 63; Pulse 76; Resp 16; Pulse Ox 99% ; rr5 04/12 00:30 BP 118 / 69; Pulse 73; Resp 16; Pulse Ox 99% on R/A; rv 01:47 BP 139 / 75; Pulse 74; Resp 16; Temp 98.8; Pulse Ox 99% on R/A; rv 02:21 BP 126 / 74; Pulse 76; Resp 16; Temp 98.5; Pulse Ox 100% on R/A; rv 04/11 19:32 Body Mass Index 25.40 (80.29 kg, 177.80 cm) ll1 ED Course: 04/11 19:27 Patient arrived in ED. ag3 19:33 Triage completed. ll1 19:33 Arm band placed on Patient placed in an exam room, on a stretcher. ll1 19:42 Orlando Alcaraz RN is Primary Nurse. rv 19:44 Cayetano Appiah MD is Attending Physician. 7 21:00 Inserted saline lock: 20 gauge in left antecubital area, using aseptic technique. Blood rv collected. 21:00 Initial lab(s) drawn, by ri, sent to lab. First set of blood cultures drawn by me. rv 21:15 Second set of blood cultures drawn by me. rv 21:18 Patient has correct armband on for positive identification. Bed in low position. Call rv light in reach. Side rails up X 1. Pulse ox on. NIBP on. 23:00 Chest Single View XRAY In Process Unspecified. EDMS 23:11 Notified ED physician of a critical lab result(s). d-dimer 641. dm5 04/12 01:29 CT Chest For PE Angio In Process Unspecified. EDMS 02:22 No provider procedures requiring assistance completed. IV discontinued, intact, rv bleeding controlled, No redness/swelling at site. Pressure dressing applied. Administered Medications: 04/11 21:00 Drug: Tylenol 650 mg Route: PO; rv 04/12 02:21 Follow up: Response: No adverse reaction rv 04/11 21:15 Drug: NS 0.9% (30 ml/kg) 30 ml/kg Route: IV; Rate: bolus; Site: left antecubital; rv 04/12 02:23 Follow up: IV Status: Completed infusion; IV Intake: 1000ml rv Intake: 02:23 IV: 1000ml; Total: 1000ml. rv Outcome: 02:09 Discharge ordered by MD. [place] 02:23 Discharged to home ambulatory, with family. rv 02:23 Condition: improved 02:23 Discharge instructions given to patient, Instructed on discharge instructions, follow up and referral plans. Demonstrated understanding of instructions, follow-up care. 02:23 Patient left the ED. rv Signatures: Dispatcher [employer] EDPR Elvia Chaudhary, RN RN dm5 Orlando Alcaraz, RN RN rv Didi Becerril Raymond, RN RN rr5 Xena Valdez RN RN ll1 Cayetano Appiah MD MD 7
--- NOTE | 2020-04-12 08:33 | RAD REPORT ---
EXAM DESCRIPTION: [place] Single View04/11/2020 11:00 pm CLINICAL HISTORY: Fever COMPARISON: none FINDINGS: The lungs appear clear of acute infiltrate. The heart is mildly enlarged IMPRESSION: No acute abnormalities displayed
[2020-04-12 12:37] VITALS: BP 126/74; TEMP 98.5; O2SAT 100
--- NOTE | 2020-04-14 11:24 | RAD REPORT ---
EXAM DESCRIPTION: CT - Chest For Pe Angio - 04/12/2020 7:13 am CLINICAL HISTORY: The patient is 75 years old and is Male; post operative;Fever TECHNIQUE: Axial computed tomographic angiography images of the chest with intravenous contrast. S agittal and coronal reformatted images were created and reviewed. This CT exam was performed using one or more of the following dose reduction techniques: automated exposure control, adjustment of t he mA and/or kV according to patient size, and/or use of iterative reconstruction technique. MIP reconstructed images were created and reviewed. COMPARISON: No relevant prior studies available. FINDINGS: PULMONARY ARTERIES: There are no obvious filling defects identified within the pulmonary arteries to suggest pulmonary embolism. AORTA: No acute findings. No thoracic aortic aneurysm. LUNGS: Minimal dependent densities in the lung bases are present. PLEURAL SPACE: Unremarkable. No significant effusion. No pneumothorax. HEART: Unremarkable. No cardiomegaly. No significant pericardial effusion. No evidence of RV dysfunction. MEDIASTINUM: The tracheobronchial tree is widely patent. BONES/JOINTS: Minimal multilevel degenerative change of the spine is present. No acute fractur e. No dislocation. SOFT TISSUES: Unremarkable. LYMPH NODES: Unremarkable. No enlarged lymph nodes. IMPRESSION: No evidence of pulmonary embolism. Electronically signed by: Aleksandra Gabriel MD 04/12/2020 1:46 AM TOBACCO SORTER Due to temporary technical issues with the PACS/Fluency reporting system, reports are being signed by the in house radiologist without review as a courtesy to ensure prompt reporting. The interpreting r adiologist is fully responsible for the content of the report.
== END 2020-04-12 02:23 | disposition home or self-care (01) ==
LOC: ER 19:23
DX: R50.9 Fever, unspecified (principal)
CPT/HCPCS: 96365; 93005; 87040 ×2; 85025; 80048; 36415; 82150; 82550; 85610; 85379; 80076; 83605; 85730; 84484; 82553; 83690; 84145; 71275; 71045; 99284; 96366; Q9967; J7030; 81003; 81015

== ENCOUNTER 2020-04-12 21:08 | Observation (INO) | payer OTHER, BC ==
--- OUTSIDE RECORDS SUMMARY | 2020-04-12 21:10 | XMS REPORT | Clinical Summary ---
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
--- OUTSIDE RECORDS SUMMARY | 2020-04-12 21:11 | XMS REPORT | Continuity of Care Document ---
:1945 Author Organization [facility] t Address [address] [place] [address] Dr. Brothers. [address] [place] [id number] Care Team Providers Name Role Phone FLAKITO Primary Care Physician Unavailable SYSTEM, NOT IN Attending Clinician Unavailable Karsten DARDEN MSN Attending Clinician Unavailable KENNEDY Attending Clinician Unavailable Kennedy CARRILLO Attending Clinician Wilma OLMOS Attending Clinician Flakito CARRILLO Attending Clinician FLAKITO Attending Clinician Unavailable Elo DARDEN Attending Clinician Unavailable Rogerio JUAREZ Attending Clinician CLAUDIA Attending Clinician Unavailable Tiffany DARDEN, M Attending Clinician Unavailable Rolf DARDEN, S Attending Clinician Unavailable Jaquan MURRAY Attending Clinician Wild Lofton Attending Clinician Andrea DARDEN Attending Clinician Unavailable Kelli DARDEN, T Attending Clinician Unavailable Claudia PA Attending Clinician Unavailable Payers Payer Name Policy Type Policy Effective Date Expiration Date Sour ce Number BLUE CROSS BLUE [id number] 2011 [facility] [place] [facility] 2 00:00:00 [id number] MEDICAREMEDICARE PART [id number] 2011 MD Vishnu Caldwell AND 00:00:00 [id number] [place], [place] Condition Condition Condition Status Onset Resolution Last Treating Co mments Source Name Details Category Date Date Treatment Clinician Date Other Other Disease Active pancytopeelisa pancytopen - Renea derso ia ia 00:00: n 00 Allergies, Adverse Reactions, Alerts Allergy Allergy Status Severity Reaction(s) Onset Inactive Treating Comm ents Source Name Type Date Date Clinician No Known DA Active [facility] All[facility]ie 10-20 Clear s 00:00: [place] 00 [facility] Family History Family Member Diagnosis Comments Start Date Stop Date Source Natural brother -Genitourinary (Bladder, MD Mares Kidney, Prostate, Testicle) Natural sister -Breast cancer Social History Social Habit Start Date Stop Date Quantity Comments Source Sex Assigned At MD James on Cigarettes smoked 2015-12-30 2015-12-30 MD Sotero reynolds current (pack per 00:00:00 00:00:00 day) - Reported Cigarette pack-years 2015-12-30 2015-12-30 MD Zakia driver 00:00:00 00:00:00 Alcohol intake 2015-12-30 2015-12-30 [...] UNABLE TO 2020-0 Yes 4{capsu Take 4 FIND 9 le} capsules Anderso 21:13: by mouth. n 48 Med Name: Feliz fruit SAW 2019- Yes 2{capsu Take 2 PALMETTO 9- le} capsules Anderso ORAL 21:13: by mouth n 31 daily. MAGNESIUM Yes 10mg Take 10 mg CHLORIDE 01-23 by mouth Anderso ORAL 21:13: daily. n 31 cholecalcif 2020-0 Yes 400U Take 400 MD melinda, 9-03 Units by Anderso vitamin D3, 21:13: mouth n 400 units 31 daily. tablet chromium 2020-0 Yes 1{capsu Take 1 MD picolinate 01-23 le} capsule by And erso 200 mcg cap 21:13: mouth n 31 daily. beta 2020-0 Yes [id number] Take MD carotene 9 25,000 Anderso [id number] UNIT 21:13: Units by n capsule 31 [...] Body temperature 2019-05-08 15:11:29 36.72 Randa MD Zakia driver Respiratory rate 2019-05-08 15:11:29 17 /min MD Zakia driver Body weight 2019-05-08 15:11:29 86.4 kg MD Bishnu enriquez BMI 2019-05-08 15:11:29 28.64 kg/m2 MD Bishnu enriquez Oxygen saturation in 2019-05-08 15:11:29 98 /min MD Mares Arterial blood by Pulse oximetry Procedures Procedure Date / Time Performed Performing Clinician [facility]ly [facility] e TOTAL PROTEIN 2019-05-08 14:31:00 Lisa Grubbs [...] SERUM CREATININE 2019-05-08 14:31:00 Silvina Fraga MD on .GLOMERULAR FILTRATION RATE 2019-05-08 14:31:00 Rashid Fraga MD Results CBC 2019-05-08 14:31:00 Silvina Fraga MD Anddianao n MANUAL DIFFERENTIAL 2019-05-08 14:31:00 Silvina Fraga MD And erson ABORH 2019-05-08 14:31:00 Silvina Fraga MD ANTIBODY SCREEN 2019-05-08 14:31:00 Silvina Fraga MD CLOT EXPIRATION DATE 2019-05-08 14:31:00 Silvina Fraga MD TMP INTERPRETATION ANTIBODY 2019-05-08 14:31:00 Rashid Fraga MD Vishnu SCREEN NEGATIVE Plan of Care Planned Activity Planned Date Details Comments Source Future Scheduled 2019-12-22 INFLUENZA VACCINE [place] [facility] 00:00:00 [code = INFLUENZA VACCINE] Future Scheduled 2011 65+ PNEUMOCOCCAL [place] [facility] 00:00:00 VACCINE (1 of 1 - PPSV23) [code = 65+ PNEUMOCOCCAL VACCINE (1 of 1 - PPSV23)] Future Scheduled 1996 COLONOSCOPY SCREENING [place] [facility] 00:00:00 [code = COLONOSCOPY SCREENING] Future Scheduled 1996 SHINGLES VACCINES (#1) [place] [facility] 00:00:00 [code = SHINGLES VACCINES (#1)] Encounters Start End Encounter Admission Attending Care Care Encounter Source Date/Time Date/Time Type Type Clinicians Facility Department ID 2020-03-27 Outpatient SYSTEM, [facility]OM[facility]IN [id number] 14:00:43 PROVIDER Jacob pérez 2020-01-11 Outpatient SYSTEM, [facility] [id number] 10:56:16 PROVIDER Jacob o elisa 2020-01-24 2020-01-24 Outpatient NIKO BEACH MDA MDA [id number] 16:57:30 17:09:24 Jacob pérez 2020-01-08 2020-01-08 Outpatient ARMANDO FRAGA MDA MDA [id number] 10:58:12 10:58:12 SILVINA pérez 2020-01-08 2020-01-08 Outpatient NIKO [facility] MDA MDA [id number] 00:00:00 00:00:00 Jacob pérez 2019-12-18 2019-12-18 Outpatient ARMANDO TAYLOR MDA MDA [id number] 00:00:00 00:00:00 KRISTIN pérez Results Test Description Test Time Test Comments Results Result Comments Source TMP Interpretation Antibody Screen Negative 2019-05-08 21:16 :02 Test Item Value Reference Range Interpretation Comme nts TMP At the present ANGELICA coe, patient SUEDanielazakia carlito by: ANGELICA ROGERS,Dictated Date/Time: Neg plasma shows no 05.08.2019 1 5:16 PM PRODUCT MGMT DEV MANAGER Transcribed Date/Time: 05.08.2019 ABSC evidence of RBC 15:16 PM PRODUCT MGMT DEV MANAGER Electronically Signed By: ANGELICA ROGERS, on Interp alloantibodies. 05.08.2019 1 5:16 PM (test code = 7535) MD MaresAntibody [id number] 18:13:28 Test Item Value Reference Range Interpretation Comments ABSC. (test code = 890-4) Negative ABSC MD [id number] 18:13:27 Test Item Value Reference Range Interpretation Comments ABORh. (test code = 882-1) O POS MD MaresClot Expiration [id number] 18:13:21 Test Item Value Reference Range Interpretation Comments T & S Expiration (test code = 05/11/2019 5318) MD MaresDjmnvhqmXwphullfhtmo8511-60-22 16:00:49 Test Item Value Reference Range Interpretation Comments Total Cells (test code 115 = 00495-3) Neutrophil % (test code 11.0 % 42-66 [...] seen Lab Interpretation Abnormal (test code = 70057-5) MD Mares.[id number] 16:00:47 Test Item Value Reference Range Interpretation [...] (test code = 56.3 fL 35.1-46.3 H 48027-7) RDW-CV (test code = 14.2 % 12-15.5 [...] differential. Lab Interpretation Abnormal (test code = 80402-3) MD MaresFractionated [id number] 15:45:24 Test Item Value Reference Range Interpretation [...] 0-0.9 code = 5095) MD MaresGlomerular Filtration [id number] 15:45:22 Test Item Value Reference Range Interpretation [...] GFR 15-295 Kidney failure <15 MD MaresGlucose, [id number] 15:45:21 Test Item Value Reference Range Interpretation Comments Glucose Random (test 92 mg/dL 70-199 Effecti ve 12/17/15, the code = 9360) glucose referen ce intervals have been updated based o n [place] [employer] francheska delines (Standards of [...] with increased risk for diabetes MD MaresMagnesium [id number] 15:45:20 Test Item Value Reference Range Interpretation Comments Magnesium (test code = 6359) 2.1 mg/dL 1.6-2.6 MD MaresTotal [id number] 15:45:19 Test Item Value Reference Range Interpretation Comments Total Protein (test code = 7649) 8.0 6.4- 8.3 gm/dL MD MaresUric [id number] 15:45:18 Test Item Value Reference Range Interpretation Comments Uric Acid (test code = 7955) 6.1 mg/dL 3.4-7 MD [id number] 15:45:17 Test Item Value Reference Range Interpretation [...] conjunction wit h clinical context. MD MaresPhosphorus [id number] 15:45:16 Test Item Value Reference Range Interpretation Comments Phosphorus (test code = 6817) 2.8 mg/dL 2.5-4.5 MD MaresYljazoguFED4846-81-16 15:45:15 Test Item Value Reference Range Interpretation Comments BUN (test code = 5055) 14 mg/dL 6-23 MD MaresAlkaline [id number] 15:45:14 Test Item Value Reference Range Interpretation Comments Alk Phos (test code = 4768) 58 U/L 40-129 MD MaresCalcium [id number] 15:45:13 Test Item Value Reference Range Interpretation Comments Calcium Lvl (test code = 5258) 9.1 mg/dL 8.4-10.2 MD MaresAlbumin [id number] 15:45:12 Test Item Value Reference Range Interpretation Comments Albumin Lvl (test code = 4763) 4.4 3.5- 5.2 gm/dL MD MaresAlanine [id number] 15:45:11 Test Item Value Reference Range Interpretation Comments ALT (test code = 4705) 10 U/L <=41 MD MaresAspartate Ronnyqefcxmsyuoh7815-36-84 15:45:10 Test Item Value Reference Range Interpretation Comments AST (test code = 4731) 21 U/L <=40 MD MaresElectrolyte [id number] 15:45:09 Test Item Value Reference Range Interpretation Comments Sodium Lvl (test code = 7355) 138 136- 145 mEq/L Potassium Lvl (test code = 6854) 3.9 3.5- 5.1 mEq/L Chloride (test code = 5279) 104 98- 107 mEq/L CO2 (test code = 5227) 28 22- 29 mEq/L Anion Gap (test code = 9325) 6 4- 14 mEq/L MD Mares.Serum Qwgitqzsxn6754-11-33 15:45:08 Test Item Value Reference Range Interpretation Comments Creatinine (test code = 5399) 0.86 mg/dL 0.67-1.17 MD Mares- XR ABDOMEN 1 [id number] 15:38:00 Name: YOAN SIEGEL [facility] : 1945 Age/S: 73 / M [id number] Unit #: [id number] Loc: [place] [address] Phys: Cayetano Fabian MD Acct: [id number] Dis Date: Status: ADM IN PHONE #: [phone] Exam Date: 10/22/2018 1459 FAX #: Reason: sepsis post colonoscopy EXAMS: CPT: [id number] XR ABDOMEN 1 V 71997 Fluoro Time: DAP (Gy m2): Air Kerma (mGy): Location code: B2 Abdomen one view HISTORY: Abdominal pain. Sepsis, post colonoscopy COMMENT: The abdominal radiograph shows a non-obstructive bowel gas pattern. There is no pneumatosis or mass effect. There are no radiopaque densities noted. There are degenerative changes in the bones. IMPRESSION: 1. Nonspecific bowel gas pattern. No free air. [id number] Reported and signed by: Guido Oscar M.D. CC: Cayetano Fabian MD; Lucas Mcclellan MD; Sotero Catherine MD PAGE 1 Signed Report Name: YOAN SIEGEL [place] : 1945 Age/S: 73 / M [id number] Unit #: [id number] Loc: [place] [address] Phys: Cayetano Fabian MD Acct: [id number] Dis Date: Status: ADM IN PHONE #: [phone] Exam Date: 10/22/2018 6801 FAX #: Reason: sepsis post colonoscopy EXAMS: CPT: [id number] XR ABDOMEN 1 V 12890 Fluoro Time: DAP (Gy m2): Air Kerma (mGy): <Continued> Technologist: RT Ilene(R) Trnscb Date/Time: 10/22/2018 (1537) [id number] Orig Print D/T: S: 10/22/2018 (2375) PAGE 2 Signed Report CBC W/AUTO [id number] 07:12:00 Test Item Value Reference Range Interpretation [...] code YES DIFF/SCN CRITERIA = MDIFF) WBC [id number] 07:12:00 Test Item Value Reference Range Interpretation Comments SEGMENTED NEUTROPHILS 44 % 40-75 N (test code = SEG) LYMPHOCYTE (test code = 35 % 12.6-43.5 N LYMPH) MONOCYTE (test code = MON) 20 % 4.2-12.7 H BASOPHIL (test code = 1 % 0-2.6 N BASO) PLATELET ESTIMATE (test DECREASED THOUSAND ADEQUATE code = PLTEST) PLATELET MORPHOLOGY (test NORMAL code = PLTMORPH) BASIC METABOLIC [id number] 06:56:00 Test Item Value Reference Range Interpretation [...] CA) 8.0 MG/DL 8.5-10.1 L CBC W/AUTO [id number] 06:53:00 Test Item Value Reference Range Interpretation [...] code YES DIFF/SCN CRITERIA = MDIFF) WBC [id number] 06:53:00 Test Item Value Reference Range Interpretation Comments SEGMENTED NEUTROPHILS (test code = SEG) % 40-75 LYMPHOCYTE (test code = LYMPH) % 12.6-43.5 CBC W/AUTO [id number] 06:53:00 Test Item Value Reference Range Interpretation [...] code YES DIFF/SCN CRITERIA = MDIFF) WBC [id number] 06:53:00 Test Item Value Reference Range Interpretation Comments SEGMENTED NEUTROPHILS (test code = SEG) % 40-75 LYMPHOCYTE (test code = LYMPH) % 12.6-43.5 CBC W/MANUAL [id number] 10:04:00 Test Item Value Reference Range Interpretation [...] EOS) 0 % 0.0-5.2 N CBC W/MANUAL [id number] 08:03:00 Test Item Value Reference Range Interpretation [...] code = LYMPH) % 12.6-43.5 BASIC METABOLIC [id number] 07:43:00 Test Item Value Reference Range Interpretation [...] CA) 8.3 MG/DL 8.5-10.1 L BASIC METABOLIC [id number] 07:38:00 Test Item Value Reference Range Interpretation [...] = CA) 8.3 MG/DL 8.5-10.1 L URINALYSIS [id number] 02:34:00 Test Item Value Reference Range Interpretation [...] LEUU) Urine Specimen Type: Clean CatchCOMPREHENSIVE METABOLIC [id number] 22:48:00 Test Item Value Reference Range Interpretation [...] TOTAL (test code = ALKP) CBC W/AUTO [id number] 22:37:00 Test Item Value Reference Range Interpretation [...] = NO DIFF/SCN CRITERIA MDIFF) TROPONIN I [id number] 22:35:00 Test Item Value Reference Range Interpretation Comments TROPONIN I RAPID 0.00 ng/mL 0.00-0.08 N - The use o f serial (test code = sampling and te sting TROPIRAP) protocol is a recommended pra ctice- An elevated tro ponin level alone is often not sufficient for diagnosis of my ocardial infarction. LACTIC ACID [id number] 22:27:00 Test Item Value Reference Range Interpretation Comments LACTIC ACID POC (test code = 0.80 MMOL/L 0.90-1.70 L LACTP)
[2020-04-12 22:41] LABS: Absolute Lymphocytes (CBC) 0.6 K/uL (0.7-4.9); Basophils % 0.2 % (0-1.3); Hematocrit 29.5 % (39.6-49.0); Lymphocytes % 8.4 % (15.3-44.8); MPV 10.1 fL (7.6-11.3); RBC Red Blood Cell Count 2.82 M/uL (4.33-5.43)
[2020-04-12 22:45] LABS: Protime INR 1.28
[2020-04-12] MEDS ORDERED: NA CHLORIDE 0.9% 2,000 ML ONE (22:45)
[2020-04-12] MEDS ORDERED: ACETAMINOPHEN 325 MG TABLET ONE (22:45)
[2020-04-12 22:54] LABS: ALT/SGPT 11 U/L (12-78); AST/SGOT 17 U/L (15-37); Albumin 3.4 g/dL (3.4-5.0); Alkaline Phosphatase 59 U/L (45-117); BUN Blood Urea Nitrogen 10 mg/dL (7-18); Bicarbonate 27 mmol/L (21-32); Bilirubin Direct 0.4 mg/dL (0-0.2); Bilirubin Total 1.6 mg/dL (0.2-1.0); Glucose Level 108 mg/dL (74-106); Potassium 3.6 mmol/L (3.5-5.1); Protein, Total 7.8 g/dL (6.4-8.2); Sodium Level 135 mmol/L (136-145); Troponin (Emerg Dept Use Only) < 0.02 ng/mL (0.0-0.045)
[2020-04-12 23:51] LABS: Blood Morphology Comment NOT SEEN (NOT SEEN); Platelet Estimate ADEQ
[2020-04-12 23:58] LABS: Urine Blood NEGATIVE (NEG); Urine Glucose NEGATIVE (NEG); Urine Protein NEGATIVE (NEG); Urine Specific Gravity 1.015 (1.005-1.030); Urine pH 5.5 (5.0-7.0)
[2020-04-13 00:31] LABS: Urine Bacteria 20-50 /HPF (NONE SEEN); Urine Culture Reflex Order REFLEXED; Urine Mucus 2+ /HPF (NONE SEEN); Urine RBC <5 /HPF (NONE SEEN)
--- NOTE | 2020-04-13 01:31 | ER ---
Nurse's Notes [facility] Name: Sridhar Martinez Age: 75 yrs Sex: Male : 1945 Arrival Date: 04/12/2020 Time: 21:08 Bed 8 Private MD: Diagnosis: Urinary tract infection, site not specified;Constipation;Proctitis Presentation: 04/12 21:23 Chief complaint: Patient states: Fever continues since visit here last night for fever. ll1 Had hernia repair 3 days ago, MD Mares sent him in for IV antibiotics today. Coronavirus screen: Client denies travel out of the [place] in the last 14 days. At this time, the client does not indicate any symptoms associated with coronavirus-19. Ebola Screen: Patient denies travel to an Ebola-affected area in the 21 days before illness onset. Initial Sepsis Screen: Does the patient meet any 2 criteria? HR > 90 bpm. No. Patient's initial sepsis screen is negative. Does the patient have a suspected source of infection? Yes: Acute abdominal pain. Risk Assessment: Do you want to hurt yourself or someone else? Patient reports no desire to harm self or others. Onset of symptoms was April 10, 2020. 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 - Social history:: Smoking status: Patient denies any tobacco usage or history of. Screenin:00 Abuse screen: Denies threats or abuse. Denies injuries from another. Nutritional wh screening: No deficits noted. Tuberculosis screening: No symptoms or risk factors identified. Fall Risk None identified. Assessment: 21:40 General: Appears in no apparent distress. Behavior is calm, cooperative, appropriate wh for age. Pain: Denies pain. Neuro: Level of Consciousness is awake, alert, obeys commands, Oriented to person, place, time, situation, Appropriate for age. Cardiovascular: Heart tones S1 S2. Respiratory: Airway is patent Respiratory effort is even, unlabored, Respiratory pattern is regular, symmetrical, Breath sounds are clear bilaterally. GI: Abdomen is flat, non-distended, Abd is soft and non tender X 4 quads. Reports recent hernia repair. : No signs and/or symptoms were reported regarding the genitourinary system. EENT: No signs and/or symptoms were reported regarding the EENT system. Derm: Skin is intact, is healthy with good turgor, Skin is pink, warm \T\ dry. normal. Musculoskeletal: Circulation, motion, and sensation intact. 23:10 Reassessment: Patient appears in no apparent distress at this time. No changes from previously documented assessment. Patient and/or family updated on plan of care and expected duration. Pain level reassessed. Patient is alert, oriented x 3, equal unlabored respirations, skin warm/dry/pink. 04/13 00:15 Reassessment: Patient appears in no apparent distress at this time. Patient and/or family updated on plan of care and expected duration. Pain level reassessed. Patient is alert, oriented x 3, equal unlabored respirations, skin warm/dry/pink. 01:31 Reassessment: Provider at bedside explaining POC need for admit. 03:00 Reassessment: Patient appears in no apparent distress at this time. Patient and/or family updated on plan of care and expected duration. Pain level reassessed. Patient is alert, oriented x 3, equal unlabored respirations, skin warm/dry/pink. 03:15 Reassessment: Pt covid negative awaiting room assignment. Vital Signs: 04/12 21:23 BP 104 / 73; Pulse 116; Resp 18; Temp 100.3; Pulse Ox 100% ; Weight 80.29 kg; Height 5 ll1 ft. 10 in. (177.80 cm); Pain 4/10; 23:02 BP 147 / 90; Pulse 116; Resp 22; Pulse Ox 99% ; rv 04/13 00:15 BP 125 / 70; Pulse 106; Resp 18; Temp 101.2; Pulse Ox 97% on R/A; 01:30 BP 142 / 81; Pulse 104; Resp 18; Pulse Ox 98% on R/A; 03:11 BP 106 / 68; Pulse 91; Resp 18; Temp 98.4(O); Pulse Ox 96% on R/A; rv 04/12 21:23 Body Mass Index 25.40 (80.29 kg, 177.80 cm) ll1 ED Course: 04/12 21:08 Patient arrived in ED. ag3 21:25 Triage completed. ll1 21:25 Arm band placed on Patient placed in an exam room, on a stretcher. ll1 21:31 Renzo Cheatham NP is PHCP. pm1 21:31 Cayetano Appiah MD is Attending Physician. pm1 21:40 Inserted saline lock: 18 gauge in right antecubital area, using aseptic technique. Blood collected. 21:50 Patient has correct armband on for positive identification. Placed in gown. Bed in low wh position. Call light in reach. Side rails up X 1. cardiac monitor on. Pulse ox on. NIBP on. 22:06 Reina Hay is Primary Nurse. 23:54 CT Abd/Pelvis - IV Contrast Only In Process Unspecified. EDMS 04/13 01:30 John Perez MD is Hospitalizing Provider. pm1 03:41 No provider procedures requiring assistance completed. Patient admitted, IV remains in place. Administered Medications: 04/12 22:41 Drug: NS 0.9% (30 ml/kg) 30 ml/kg Route: IV; Rate: bolus; Site: right antecubital; 04/13 03:43 Follow up: Response: No adverse reaction; IV Status: Completed infusion 04/12 22:41 Not Given (Patient Refused): Tylenol 650 mg PO once 04/13 01:10 Drug: Tylenol 650 mg Route: PO; 03:19 Follow up: Response: No adverse reaction; Temperature is decreased 01:41 Drug: Flagyl 500 mg Volume: 100 ml; Route: IVPB; Rate: 200 ml/hr; Infused Over: 30 mins; Site: right antecubital; 03:19 Follow up: Response: No adverse reaction; IV Status: Completed infusion 02:10 Drug: Cefepime 2 grams Route: IVPB; Rate: 200 ml/hr; Infused Over: 30 mins; Site: right antecubital; 03:19 Follow up: Response: No adverse reaction; IV Status: Completed infusion 03:19 Drug: Zyvox 600 mg Route: IV; Rate: calculated rate; Site: right antecubital; 03:42 Follow up: Response: No adverse reaction; IV Status: Infusion continued upon admission Outcome: 01:31 Decision to Hospitalize by Provider. pm1 03:42 Admitted to Med/surg accompanied by tech, family with patient, via wheelchair, room 212, with chart, Report called to Luís Solitario RN 03:42 Condition: stable 03:42 Instructed on the need for admit. 03:44 Patient left the ED. Signatures: Dispatcher [employer] EDMS Renzo Cheatham, ANN LIGHT FIXTURE SERVICER pm1 Reina Hay Orlando Alcaraz, RN RN Didi Becerril 3 Xena Valdez, KATALINA RN ll1 Corrections: (The following items were deleted from the chart) 03:24 00:15 BP 125 / 70; Pulse 106bpm; Resp 18bpm; Pulse Ox 97% RA; [facility]
--- NOTE | 2020-04-13 01:32 | EDPHYS ---
Physician Documentation [facility] Name: Sridhar Martinez Age: 75 yrs Sex: Male : 1945 Arrival Date: 04/12/2020 Time: 21:08 Bed 8 Private MD: ED Physician Cayetano Appiah HPI: 04/12 21:55 This 75 yrs old Male presents to ER via Ambulatory with complaints of Fever. pm1 21:55 The patient reports fever, that was measured at 100.6 degrees Fahrenheit. Onset: The pm1 symptoms/episode began/occurred yesterday. Associated signs and symptoms: Pertinent positives: Constipation, Pertinent negatives: abdominal pain, chest pain, cough, diarrhea, shortness of breath, vomiting. Severity of symptoms: in the emergency department the symptoms are unchanged. The patient has been recently seen at the [facility] Emergency Department, yesterday, for similar complaints Labs, chest x-ray, and CT chest. Patient refused admission and left the ER. Came back today with the same complaint of fever. Patient has left inguinal surgery repair on . 21:55 Patient has been taking Levaquin for the past 4 days. Patient is noncompliant with his pm1 antibiotics and antifungal that he prescribed daily. He started taking the Levaquin again due to the inguinal surgery. 21:55 Patient has not had a bowel movement since until he self-disimpacted himself pm1 this AM. He was also having difficulty urinating until he was able to have a bowel movement today. 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 - Social history:: Smoking status: Patient denies any tobacco usage or history of. ROS: 21:55 Back: Negative for injury and pain, : Negative for injury, bleeding, discharge, and pm1 swelling, MS/Extremity: Negative for injury and deformity, Skin: Negative for injury, rash, and discoloration, Neuro: Negative for headache, weakness, numbness, tingling, and seizure. 21:55 Eyes: Negative for injury, pain, redness, and discharge, ENT: Negative for injury, pain, and discharge, Neck: Negative for injury, pain, and swelling, Cardiovascular: Negative for chest pain, palpitations, and edema, Respiratory: Negative for shortness of breath, cough, wheezing, and pleuritic chest pain. 21:55 Abdomen/GI: Positive for constipation, Negative for abdominal pain, nausea, vomiting, and diarrhea. 21:55 Constitutional: Positive for fever, Negative for body aches, chills, poor PO intake. pm1 Exam: 21:55 Constitutional: This is a well developed, well nourished patient who is awake, alert, pm1 and in no acute distress. Head/Face: Normocephalic, atraumatic. Chest/axilla: Normal chest wall appearance and motion. Nontender with no deformity. No lesions are appreciated. 21:55 Respiratory: Lungs have equal breath sounds bilaterally, clear to auscultation and percussion. No rales, rhonchi or wheezes noted. No increased work of breathing, no retractions or nasal flaring. Abdomen/GI: Soft, non-tender, with normal bowel sounds. No distension or tympany. No guarding or rebound. No evidence of tenderness throughout. Back: No spinal tenderness. No costovertebral tenderness. Full range of motion. 21:55 Cardiovascular: Exam negative for acute changes, Rate: tachycardic, actual rate is 116 bpm, Rhythm: regular, Pulses: no pulse deficits are appreciated, Edema: is not appreciated. 21:55 Skin: Appearance: normal except for affected area, Wound recheck: Staple laceration closure: the wound is healing well, the edges are well approximated, no evidence of dehiscence, no drainage, no erythema, no swelling, left inguinal area. 21:55 Neuro: Exam negative for acute changes, Orientation: is normal, Mentation: is normal, Motor: is normal, moves all fours. Vital Signs: 21:23 BP 104 / 73; Pulse 116; Resp 18; Temp 100.3; Pulse Ox 100% ; Weight 80.29 kg; Height 5 ll1 ft. 10 in. (177.80 cm); Pain 4/10; 23:02 BP 147 / 90; Pulse 116; Resp 22; Pulse Ox 99% ; rv 04/13 00:15 BP 125 / 70; Pulse 106; Resp 18; Temp 101.2; Pulse Ox 97% on R/A; wh 01:30 BP 142 / 81; Pulse 104; Resp 18; Pulse Ox 98% on R/A; wh 03:11 BP 106 / 68; Pulse 91; Resp 18; Temp 98.4(O); Pulse Ox 96% on R/A; rv 04/12 21:23 Body Mass Index 25.40 (80.29 kg, 177.80 cm) ll1 MDM: 04/12 21:33 Patient medically screened. pm1 22:10 ED course: No antibiotics initiated in the ER initially because the patient is pm1 currently taking Levaquin. 04/13 00:30 Data reviewed: vital signs. Data interpreted: Pulse oximetry: on room air is 99 %. pm1 Interpretation: normal. 00:40 Counseling: I had a detailed discussion with the patient and/or guardian regarding: the pm1 historical points, exam findings, and any diagnostic results supporting the discharge/admit diagnosis, lab results, radiology results. 01:35 Physician consultation: Oncology Ronel No call back from Dr. Rodney and oncall pm1 physicians from [facility] at [phone], [phone], and [phone] (answering service following up if any called back after she paged and called them). Dr. Appiah recommended admission to hospital. 01:37 Physician consultation: John Perez MD was called at 01:37, was contacted at 01:37, pm1 regarding admission, patient's condition, and will see patient. 01:54 Physician consultation: [facility] oncologist Mayda Discussed case with her and pm1 she recommended continuation of cefepime and Flagyl but add linezolid to the treatment. Discussed how patient does not know his medications he is supposed to take daily for his MDS and lack of compliance. The patient is taking Levaquin and she said the other two are likely Valtrex and an antifungal like voriconazole. Once we can verify his home medication list we can restart it here. She was second salesperson shoes and said she would update his oncologist Dr. Rodney. 02:06 ED course: reports that they have a DNR at home, but want to be full code for this pm1 admission. 04/12 21:55 Order name: Basic Metabolic Panel; Complete Time: 22:55 pm1 04/12 21:55 Order name: Blood Culture Adult (2) pm1 04/12 21:55 Order name: CBC with Diff; Complete Time: 23:54 pm1 04/12 21:55 Order name: Lactate; Complete Time: 22:54 pm1 04/12 21:55 Order name: LFT's; Complete Time: 22:55 pm1 04/12 21:55 Order name: Procalcitonin; Complete Time: 23:51 pm1 04/12 21:55 Order name: Protime (+inr); Complete Time: 22:50 pm1 04/12 21:55 Order name: Ptt, Activated; Complete Time: 22:50 pm1 04/12 21:55 Order name: Troponin (emerg Dept Use Only); Complete Time: 22:55 pm1 04/12 21:55 Order name: Urine Microscopic Only; Complete Time: 00:35 pm1 04/12 22:09 Order name: Flu; Complete Time: 23:59 pm1 04/12 22:09 Order name: Strep; Complete Time: 23:59 pm1 04/12 22:33 Order name: Glucose, Ancillary Testing; Complete Time: 22:37 EDMA 04/12 21:56 Order name: CT Abd/Pelvis - IV Contrast Only pm1 04/12 22:47 Order name: Manual Differential; Complete Time: 23:54 EDMA 04/12 23:50 Order name: Urine Dipstick--Ancillary (enter results); Complete Time: 23:59 2 04/12 23:58 Order name: Throat Culture [facility] 04/13 00:33 Order name: Urine Culture [facility] 04/13 02:03 Order name: CBC with Automated Diff EDMA 04/13 02:03 Order name: CBC with Automated Diff EDMA 04/13 02:03 Order name: Comprehensive Metabolic Panel EDMA 04/13 02:03 Order name: Comprehensive Metabolic Panel EDMA 04/13 02:50 Order name: SARS-COV-2 RT PCR; Complete Time: 14:09 EDMA 04/12 21:55 Order name: Accucheck; Complete Time: 22:28 pm1 04/12 21:55 Order name: Cardiac monitoring; Complete Time: 22:15 pm1 04/12 21:55 Order name: EKG - Nurse/Tech; Complete Time: 22:16 pm1 04/12 21:55 Order name: IV Saline Lock - Large Bore; Complete Time: 22:28 pm1 04/12 21:55 Order name: Labs collected and sent; Complete Time: 22:28 pm1 04/12 21:55 Order name: O2 Per Protocol; Complete Time: 22:28 pm1 04/12 21:55 Order name: O2 Sat Monitoring; Complete Time: 22:28 pm1 04/12 21:55 Order name: Urine Dipstick-Ancillary (obtain specimen); Complete Time: 23:44 pm1 04/13 02:03 Order name: Regular EDMS Administered Medications: 04/12 22:41 Drug: NS 0.9% (30 ml/kg) 30 ml/kg Route: IV; Rate: bolus; Site: right antecubital; 04/13 03:43 Follow up: Response: No adverse reaction; IV Status: Completed infusion 04/12 22:41 Not Given (Patient Refused): Tylenol 650 mg PO once 04/13 01:10 Drug: Tylenol 650 mg Route: PO; 03:19 Follow up: Response: No adverse reaction; Temperature is decreased 01:41 Drug: Flagyl 500 mg Volume: 100 ml; Route: IVPB; Rate: 200 ml/hr; Infused Over: 30 wh mins; Site: right antecubital; 03:19 Follow up: Response: No adverse reaction; IV Status: Completed infusion 02:10 Drug: Cefepime 2 grams Route: IVPB; Rate: 200 ml/hr; Infused Over: 30 mins; Site: right antecubital; 03:19 Follow up: Response: No adverse reaction; IV Status: Completed infusion 03:19 Drug: Zyvox 600 mg Route: IV; Rate: calculated rate; Site: right antecubital; 03:42 Follow up: Response: No adverse reaction; IV Status: Infusion continued upon admission Disposition: 06:05 Co-signature as Attending Physician, Cayetano Appiah MD. [email or web address] Disposition: 04/13/20 01:31 Hospitalization ordered by John Perez for Inpatient Admission. Preliminary diagnosis are Urinary tract infection, site not specified, Constipation, Proctitis. - Bed requested for Telemetry/MedSurg (Inpatient). - Status is Inpatient Admission. - Condition is Stable. - Problem is new. - Symptoms have improved. Signatures: Dispatcher [facility] Citlali Jha RN RN mw Renzo Cheatham NP AGILE TESTER pm1 Reina Hay Xena Valdez RN RN ll1 Cayetano Appiah MD MD [email or web address] Corrections: (The following items were deleted from the chart) 00:28 04/12 21:55 Constitutional: Negative for fever, chills, and weight loss, Eyes: Negative pm1 for injury, pain, redness, and discharge, ENT: Negative for injury, pain, and discharge, Neck: Negative for injury, pain, and swelling, Cardiovascular: Negative for chest pain, palpitations, and edema, Respiratory: Negative for shortness of breath, cough, wheezing, and pleuritic chest pain, pm1 04/13 01:36 04/12 22:10 CORONAVIRUS+MR.LAB.BRZ ordered. EDMA EDMA 04/13 03:29 01:31 Hospitalization Ordered by John Perez MD for Inpatient Admission. Preliminary diagnosis is Urinary tract infection, site not specified; Constipation; Proctitis. Bed requested for Telemetry/MedSurg (Inpatient). Status is Inpatient Admission. Condition is Stable. Problem is new. Symptoms have improved. pm1 03:44 03:29 04/13/2020 01:31 Hospitalization Ordered by John Perez MD for Inpatient Admission. Preliminary diagnosis is Urinary tract infection, site not specified; Constipation; Proctitis. Bed requested for Telemetry/MedSurg (Inpatient). Status is Inpatient Admission. Condition is Stable. Problem is new. Symptoms have improved. mw
[2020-04-13] MEDS ORDERED: ACETAMINOPHEN 500 MG TAB PO PRN (01:42)
[2020-04-13] MEDS ORDERED: METRONIDAZOLE 500mg IVPB 500 MG/100 ML BAG IV ONE (01:49)
[2020-04-13] MEDS ORDERED: CEFEPIME 2 GM/200 ML BAG IV ONE (01:49)
[2020-04-13] MEDS ORDERED: LINEZOLID 600 MG IVPB 600 MG/300 ML BAG IV ONE (02:48)
[2020-04-13 04:28] VITALS: BMI 25.7
[2020-04-13] MEDS ORDERED: METRONIDAZOLE 500mg IVPB 500 MG/100 ML BAG IV SCH (06:00)
[2020-04-13] MEDS ORDERED: LINEZOLID 600 MG IVPB 600 MG/300 ML BAG IV SCH (09:00)
[2020-04-13] MEDS ORDERED: CEFEPIME/SWI 2gm 2 GM/20 ML SYR IVP SCH (09:00)
[2020-04-13] MEDS ORDERED: CEFEPIME 2 GM VIAL IV SCH (09:00)
[2020-04-13 09:41] VITALS: BP 102/56; TEMP 97.9
--- NOTE | 2020-04-13 09:41 | P.SSS ---
Patient History Date of Service: 04/13/20 Reason for admission: CONSTIPATION History of Present Illness: MR SIEGEL HAS BEEN SEVERELY CONSTIPATED FORM CODEINE GIVEN FOR POST OP FOR L INGUINAL HERNIA JUST ABOUT 3 DAYS AGO. HE HAD LOW GRADE FEVER POST OP AND FOR TWO DAYS. HE HAD TO DISIMPACT HIMSELF AND AFTER THAT HE HAD LOW GRADE FEVER. ON CT SCAN HE HAS SMALL SEROMA IN THE REGION OF SURGERY. ABDOMEN IS VERY SOFT AND OTHERWISE NON TENDER EXCEPT FOR SURGICAL SITE THAT IS MILD TENDER. Allergies No Known Allergies Allergy (Verified 04/13/20 04:26) Home Medications: Levofloxacin [Levaquin] 500 mg PO DAILY 04/13/20 Saw/Vit E/Sod Steffi/Lyc/Beta/Pyg [Prostate Health Caplet] 1 each PO BID 04/13/20 - Past Medical/Surgical History Has patient received pneumonia vaccine in the past: No Diabetic: No -: Myodysplastic Syndrome -: HErnia Repair -: Tonsilectomy - Social History Smoking Status: Former smoker Alcohol use: No CD- Drugs: No Caffeine use: Yes Place of Residence: Home Review of Systems 10-point ROS is otherwise unremarkable Physical Examination - Vital Signs Temperature: 97.9 F Blood Pressure: 102/56 Pulse: 83 Respirations: 16 Pulse Ox (%): 96 - Physical Exam General: Mild distress HEENT: Atraumatic, PERRLA, Mucous membr. moist/pink, EOMI, Sclerae nonicteric Neck: Supple, 2+ carotid pulse no bruit, No LAD, Without JVD or thyroid abnormality Respiratory: Clear to auscultation bilaterally, Normal air movement Cardiovascular: Regular rate/rhythm, Normal S1 S2 Gastrointestinal: Normal bowel sounds, No rebound, No guarding, Tenderness ( HPI) Musculoskeletal: No tenderness Integumentary: No rashes Neurological: Normal gait, Normal speech, Normal strength at 5/5 x4 extr, Normal tone, Normal affect Lymphatics: No axilla or inguinal lymphadenopathy - Studies Laboratory Data (last 24 hrs) 04/12/20 22:20: PT 15.0 H, INR 1.28, APTT 30.4 04/12/20 22:20: WBC 7.4 D, Hgb 10.4 L, Hct 29.5 L, Plt Count 125 L 04/12/20 22:20: Sodium 135 L, Potassium 3.6, BUN 10, Creatinine 1.00, Glucose 108 H, Total Bilirubin 1.6 H, AST 17, ALT 11 L, Alkaline Phosphatase 59 Microbiology Data (last 24 hrs): 04/12/20 22:50 Nasopharnyx Influenza Type A Antigen Screen - Final 04/12/20 22:50 Nasopharnyx Influenza Type B Antigen Screen - Final 04/12/20 22:50 Throat Group A Streptococcus Rapid Screen - Final - Diagnosis (Problem(s)) (1) Fever Current Visit: Yes Status: Acute Plan: THIS IS POST OP FEVER FROM SEROMA MOST LIKELY. HE ALSO HAD TO DISIMPACT HIMSELF AND THAT GAVE RISE TO RECTAL INFLAMMATION. HIS ANC IS ABOVE 500 NOW FOR LAST 3 LAB REPORTS. HE IS UNDER ISTRUCTIONS TO USE LEVAQUIN, DIFLUCAN AND VALTREX DAILY BY [facility] BUT HE IS NOT DOING SO BUT AGAIN HIS ANC IS NOT LOW ENOUGH SINCE HE STARTED TAKING ORIGINAL GLUTATHIONE FORMULA. IT MAY BE HELPING HIM IMPROVE HIS BONE MARROW. (2) Constipation Current Visit: Yes Status: Acute Plan: MIRALAX AND MOM DAILY. Qualifiers: Constipation type: drug induced constipation Qualified Code(s): K59.03 - Drug induced constipation (3) Seroma after procedure Current Visit: Yes Status: Acute Plan: FU WITH DR. ROGERS (4) MDS (myelodysplastic syndrome) Current Visit: Yes Status: Acute (5) Neutropenia Current Visit: Yes Status: Acute Plan: ABOVE . Qualifiers: Neutropenia type: other Qualified Code(s): D70.8 - Other neutropenia - Disposition Disposition: ROUTINE DISCHARGE
[2020-04-13 11:35] VITALS: O2SAT 98
--- NOTE | 2020-04-13 15:15 | RAD REPORT ---
EXAM DESCRIPTION: CT ABDOMEN PELVIS W CONTRAST CLINICAL HISTORY: FEVER TECHNIQUE: Contiguous axial images obtained through the abdomen and pelvis following the uneventful administration of IV contrast. Coronal and sagittal reformatted images were provided. This exam was performed according to our departmental dose-optimization program, which includes autom ated exposure control, adjustment of the mA and/or kV according to patient size and/or use of iterati ve reconstruction technique. COMPARISON: 09/09/2014 FINDINGS: Lung bases: Clear Liver: Subcentimeter left hepatic hypodensity which is too small to characterize. Gallbladder and biliary system: Subtle layering density within the gallbladder which may be related t o gallstones and/or sludge or possibly vicarious excretion of contrast. Pancreas: Unremarkable Spleen: Unremarkable Adrenals: Unremarkable Kidneys: Normal renal cortical enhancement. There are couple small calculi within the upper pole judy ecting system on the right. 3 cm cyst at the lateral upper to mid pole on the left (previously 2.5 cm ). Additional subcentimeter hypodensities bilaterally which are too small to characterize. No hydrone phrosis. Bowel: Moderate stool. Colonic diverticula without adjacent inflammatory change. No obstruction. Mild rectal wall thickening with perirectal and presacral edema. Appendix: Normal caliber appendix. No findings to suggest acute appendicitis. Urinary bladder: Punctate focus of nondependent gas within the urinary bladder which can be seen in t he setting of recent instrumentation. Reproductive: Unremarkable as visualized Lymph nodes: No pathologically enlarged lymph nodes. Peritoneum: No free air. Vessels: Mild atherosclerotic disease. No abdominal aortic aneurysm. Abdominal wall: Recent postsurgical changes in the left inguinal region. Moderate infiltrative change s, scattered gas foci and skin heber in place. Gas foci extend into the inguinal canal. There is a gas containing collection subjacent to the ventral abdominal wall at the operative site measuring suma roximately 4 x 2.5 x 3.5 cm. Bones: Multilevel spondylosis. No acute fracture. IMPRESSION: 1. Findings which may be related to mild nonspecific proctitis. 2. Recent postsurgical changes at the left inguinal region. Moderate infiltrative changes, scattere d gas foci and skin heber in place. Gas foci extend into the inguinal canal. There is a gas contain ing collection subjacent to the ventral abdominal wall at the operative site measuring approximately 4 x 2.5 x 3.5 cm. There is may represent residual postoperative change. Developing abscess cannot be excluded. 3. Other findings as above. Electronically signed by: Geno Serrano MD 04/13/2020 12:22 AM DIRECTOR COLLEGE Due to temporary technical issues with the PACS/Fluency reporting system, reports are being signed by the in house radiologists without review as a courtesy to insure prompt reporting. The interpreting radiologist is fully responsible for the content of the report.
== END 2020-04-13 11:05 | disposition home or self-care (01) ==
LOC: ER 21:08 → INTOOBSV 04-13 03:48 → 2ND 04-13 03:48
PROVIDERS: ADMIT Internal Medicine; ATTEND Internal Medicine
DX: R50.82 Postprocedural fever (principal); K59.03 Drug induced constipation; K91.872 Postprocedural seroma of a digestive system organ or structure following a digestive system procedure; D46.9 Myelodysplastic syndrome, unspecified; D70.9 Neutropenia, unspecified; Z87.891 Personal history of nicotine dependence; Z20.828 Contact with and (suspected) exposure to other viral communicable diseases; R94.31 Abnormal electrocardiogram [ECG] [EKG]
CPT/HCPCS: 36415; 74177; 80048; 80076; 81003; 81015; 82947; 83605; 84145; 84484; 85025; 85610; 85730; 87040; 87070; 87081; 87086; 87088; 87804; 93005; 96365; 96366; 96367; 99285; G0378; J0692; J2020; J7030; Q9967; U0003

== ENCOUNTER 2022-07-05 18:13 | Observation (INO) | payer OTHER, BC ==
--- OUTSIDE RECORDS SUMMARY | 2022-07-05 18:36 | XMS REPORT | Continuity of Care Document ---
:1945 Author Organization [facility] t Address [address] [place] [address] Care Team Providers Name Role Phone [phone] Primary Care Physician Unavailable SYSTEM, PROVIDER NOT IN Attending Clinician Unavailable Yesenia Ruiz NP Attending Clinician [phone] JESSICA CARLOS Attending Clinician Unavailable SILVINA FRAGA Attending Clinician Unavailable Manuel Andersen Attending Clinician Unavailable DEBBIE SILVA Attending Clinician Unavailable ANIKA BOWMAN Attending Clinician Unavailable NIKO HOYT Attending Clinician Unavailable KRISTIN TAYLOR Attending Clinician Unavailable Sotero Catherine Attending Clinician Unavailable John Oscar Admitting Clinician Unavailable Payers Payer Name Policy Type Policy Number Effective Date Expiration Date S ource Problems Condition Condition Condition Status Onset Resolution Last Treating Co mments Source Name Details Category Date Date Treatment Clinician Date Other Other Disease Recurre Univers pancytopen pancytopen nce 7-12 it y of [place] 00:00: [place] 00 [facility] Allergies, Adverse Reactions, Alerts Allergy Allergy Status Severity Reaction(s) Onset Inactive Treating Comm ents Source Name Type Date Date Clinician No Known [facility] Allergie 00:00: s 00 Unable DA Active U 2020-05 [facility] UCLAm to 1-27 Assess 00:00: 00 No Known DA Active U 2018- [facility] Allergie 10-20 Clear s 00:00: [place] 00 [facility] Family History Family Member Diagnosis Comments Start Date Stop Date Source Natural [facility] -[facility] [place] (Bladder, Kidney, MD Bey rsjohanne Cancer Prostate, Testicle) Cente r Natural father [facility] Natural mother [facility] Natural [facility] -[facility] Natural son [facility] Social History Social Habit Start Date Stop Date Quantity Comments Source Alcohol intake 2021-01-20 2021-01-20 Current University 00:00:00 00:00:00 non-drinker of 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 Brittni Cobian [facility] History of tobacco 1962 1979 Current smoker Un iversity of use 00:00:00 00:00:00 Brittni enriquez [facility] Sex Assigned At [birth year] [facility] 00[facility]00 [facility] Smoking Status Start Date Stop Date Source Tobacco [facility] consumption unknown Ex-smoker 2015-12-02 00:00:00 2015-12-02 [place] o f Brittni CARRILLO 00:00:00 [facility] Medications Ordered Filled Start Stop Current Ordering Indication Dosage Frequency Signature Comments Components Source Medication Medication Date Date Medication? 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 Yes 2{capsu Take 2 Univers PALMETTO 2-07 le} capsules ity of ORAL 10:58: by mouth [place] 37 daily. MD Ethan pérez [facility] UNABLE TO 2020-05 Yes 4{capsu Take 4 Uni vers FIND 2-07 le} capsules ity of 10:58: by mouth. [place] 37 Med Name: MD Trini thakur [facility] CHOLECALCIF 2020-05 Yes 2000U Take 2,000 Univers ISABELLA, 2-07 Units by ity of VITAMIN D3, 10:58: mouth [place] ORAL 37 daily. MD Ethan pérez [facility] multivitami 2020-05 Yes 1{capsu Take 1 U nivers n capsule 2-07 le} capsule by ity of 10:58: mouth [place] 37 daily. MD Ethan pérez [facility] ascorbic 2020-05 Yes 1000mg Take 1,000 U nivers acid, 2-07 mg by ity of vitamin C, 10:58: mouth [place] (VITAMIN C) 37 daily. 1000 mg Anderso tablet [facility] GLUTATHIONE 2020-05 Yes 6{capsu 6 capsules Univers MISC 2-07 le} by ity of 10:58: miscellane [place] 37 [address] MD daily. [facility] L.acid-B.bi 2020-05 Yes 1{capsu Take 1 U nivers fidum-B.ani 2-07 le} capsule by it y of mal-FOS 10:58: mouth 3 [place] (Probiotic 37 (three) Complex) 25 times a Bishnu so billion day. n cell -100 Cancer mg [facility] cyanocobala 2020-05 Yes 1000ug Take 1,000 Univers min, 2-07 mcg by ity of vitamin 10:58: mouth [place] B-12, (B-12 37 daily. Compliance) Anderso 1,000 n mcg/mL kit [facility] [place] triamcinolo Yes 1{appli Apply 1 Univers ne 6-25 cation} applicatio ity of (KENALOG) 00:00: n [place] 0.1% cream 00 topically to Ethan affected n area(s) as Cancer needed. [place] levoFLOXaci Yes Other 500mg Take 1 Un addie n 5-20 pancytopeni tablet ity of (Levaquin) 00:00: a (500 mg) [place] 500 mg 00 by mouth MD tablet daily. [facility] valACYclovi Yes Other 500mg Take 1 Un addie r (VALTREX) 5-20 pancytopeni tablet ity of 500 mg 00:00: a (500 mg) [place] tablet 00 by mouth MD daily. [facility] fluconazole 2021- No Other 200mg Take 1 U nivers (DIFLUCAN) 5-20 03-15 pancytopeni tablet ity of 200 mg 00:00: 00:00 a (200 mg) [place] tablet 00 :00 by mouth MD daily. [facility] Procedures This patient has no known procedures. Plan of Care Planned Activity Planned Date Details Comments Source Future Scheduled 2022-05-26 COVID-19 Vaccination [facility] [place] Test 10:51:09 (#1) [code = COVID-19 MD [facility] Vaccination (#1)] Center Future Scheduled 2022-05-09 COVID-19 VACCINE (#1) [facility] Test 02:33:20 [code = COVID-19 VACCINE (#1)] Future Scheduled 2022-05-09 COLONOSCOPY SCREENING [facility] Test 02:33:20 [code = COLONOSCOPY SCREENING] Future Scheduled 2022-05-09 SHINGLES VACCINES (1 [facility] Test 02:33:20 of 2) [code = SHINGLES VACCINES (1 of 2)] Future Scheduled 2022-05-09 65+ [facility]CCAL [facility] Test 02:33:20 VACCINE (1 - PCV) [code = 65+ PNEUMOCOCCAL VACCINE (1 - PCV)] Future Scheduled 2022-05-09 INFLUENZA VACCINE [facility] Hospital Test 02:33:20 [code = INFLUENZA VACCINE] Encounters Start End Encounter Admission Attending Care Care Encounter Source Date/Time Date/Time Type Type Clinicians Facility Department ID 2020-05-06 Outpatient SYSTEM, TOMAS MARIN [id number] 15:59:46 PROVIDER Jacob pérez 2020-03-27 Outpatient SYSTEM, TOMAS MARIN [id number] 14:00:43 PROVIDER Jacob pérez 2020-01-11 Outpatient SYSTEM, TOMAS MARIN [id number] 10:56:16 PROVIDER Jacob pérez 2021-09-21 2021-09-21 Lisa Jacobs-Ma [id number] [facility] 00:00:00 00:00:00 Only camilo, [id number] Jamarcus [id number] .[id number] MD .8 Ethan pérez [facility] 2021-04-28 2021-04-28 Outpatient ARMANDO CARLOS, MDA MDA [id number] 09:45:00 23:59:00 JESSICA pérez 2021-04-28 2021-04-28 Outpatient ARMANDO FRAGA, MDA MDA [id number] 10:23:22 11:39:46 SILVINA pérez 2021-04-20 2021-04-20 Outpatient Elective Manuel Andersen [facility] [id number] [facility] 14:32:00 19:12:00 13 2021-01-20 2021-01-20 Outpatient ARMANDO FRAGA, MDA MDA [id number] 07:25:56 11:11:06 SILVINA pérez 2021-01-08 2021-01-08 Outpatient ARMANDO SILVA, MDA MDA [id number] 12:29:00 23:59:00 DEBBIE pérez 2020-12-08 2020-12-08 Outpatient EL TERRANCE, MDA MDA [id number] 10:00:00 23:59:00 JESSICA pérez 2020-12-08 2020-12-08 Outpatient ARMANDO BOWMAN, MDA MDA [id number] 08:00:00 09:59:00 ANIKA pérez 2020-12-08 2020-12-08 Outpatient ARMANDO PICKARDER, MDA MDA [id number] 08:07:14 08:07:14 ANIKA pérez 2020-11-25 2020-11-25 Outpatient EL TERRANCE, MDA MDA [id number] 07:43:40 23:59:00 JESSICA pérez 2020-11-25 2020-11-25 Outpatient ARMANDO FRAGA, MDA MDA [id number] 08:02:05 10:32:08 SILVINA pérez 2020-08-26 2020-08-26 Outpatient ARMANDO FRAGA MDA MDA [id number] 07:56:08 07:56:08 SILVINA pérez 2020-04-29 2020-04-29 Outpatient ARMANDO FRAGA MDA MDA [id number] 08:06:02 08:06:02 SILVINA pérez 2020-01-24 2020-01-24 Outpatient NIKO BEACH MDA MDA [id number] 16:57:30 17:09:24 Jacob pérez 2020-01-08 2020-01-08 Outpatient ARMANDO FRAGA MDA MDA [id number] 10:58:12 10:58:12 SILVINA pérez 2020-01-08 2020-01-08 Outpatient NIKO BEACH MDA MDA [id number] 00:00:00 00:00:00 Jacob pérez 2019-12-18 2019-12-18 Outpatient ARMANDO TAYLOR MDA MDA [id number] 00:00:00 00:00:00 KRISTIN pérez 2018-10-20 2018-10-23 Inpatient CLEMENTE Tan INTE.02 [id number] [facility] 22:55:00 12:17:00 Musaddiq 82 [facility] Results Test Description Test Time Test Comments Results Result Comments Source - XR ABDOMEN 1 V 2018-10-22 Name: 15:38:00 [facility] 1945 Age[facility]S: 73 / M [id number] Unit #: [id number] Loc: [place] [address] Phys: Cayetano Fabian MD Acct: [id number] Dis Date: Status: ADM IN PHONE #: [phone] Exam Date: 10/22/2018 9754 FAX #: Reason: sepsis post colonoscopy EXAMS: CPT: [id number] XR ABDOMEN 1 V 73795 Fluoro Time: DAP (Gy m2): Air Kerma (mGy): Location code: B2 Abdomen one view HISTORY: Abdominal pain. Sepsis, post colonoscopy COMMENT: The abdominal radiograph shows a non-obstructive bowel gas pattern. There is no pneumatosis or mass effect. There are no radiopaque densities noted. There are degenerative changes in the bones. IMPRESSION: 1. Nonspecific bowel gas pattern. No free air. at 1531 Reported and signed by: Guido Oscar M.D. CC: Cayetano Fabian MD; Lucas Mclcellan MD; Sotero Catherine MD PAGE 1 Signed Report Name: YOAN MARTINEZ [place] : 1945 Age/S: 73 / M [id number] Unit #: [id number] Loc: [place] [address] Phys: Cayetano Fabian MD Acct: [id number] Dis Date: Status: ADM IN PHONE #: [phone] Exam Date: 10/22/2018 0189 FAX #: Reason: sepsis post colonoscopy EXAMS: CPT: [id number] XR ABDOMEN 1 V [id number] Fluoro Time: DAP (Gy m2): Air Kerma (mGy): (Continued) Technologist: Bhakti Duffy RT(R) Trnscb Date/Time: 10/22/2018 (619) [id number] Orig Print D/T: S: 10/22/2018 (7894) PAGE 2 Signed Report CBC W/AUTO DIFF 2018-10-22 07:12:00 Test Item Value Reference Range Interpretation Comme nts WHITE BLOOD CELL (test code = WBC) 3.6 K/mm3 3.5-11.0 N RED BLOOD CELL (test code = RBC) 2.67 M/mm3 4.70-6.10 L HEMOGLOBIN (test code = HGB) 9.7 G/DL 12.3-15.9 L HEMATOCRIT (test code = HCT) 29.4 % 35.8-46.7 L MEAN CELL VOLUME (test code = MCV) 110.1 Fl 86.3-98.9 H MEAN CELL HGB (test code = MCH) 36.3 pg 28.9-34.4 H MEAN CELL HGB CONCETRATION (test code = MCHC) 33.0 G/DL 32.1-34. 5 N RED CELL DISTRIBUTION WIDTH (test code = RDW) 13.8 SD 11.5-14. 5 N PLATELET COUNT (test code = PLT) 72.0 K/mm3 150-450 L MEAN PLATELET VOLUME (test code = MPV) 12.60 fL 7.0-9.6 H MANUAL DIFF REQUIRED (test code = MDIFF) YES DIFF/SCN CRITERIA WBC [id number] 07:12:00 Test Item Value Reference Range Interpretation Comments SEGMENTED NEUTROPHILS 44 % 40-75 N (test code = SEG) LYMPHOCYTE (test code = 35 % 12.6-43.5 N LYMPH) MONOCYTE (test code = MON) 20 % 4.2-12.7 H BASOPHIL (test code = 1 % 0-2.6 N BASO) PLATELET ESTIMATE (test DECREASED THOUSAND ADEQUATE code = PLTEST) PLATELET MORPHOLOGY (test NORMAL code = PLTMORPH) BASIC METABOLIC [id number] 06:56:00 Test Item Value Reference Range Interpretation [...] CA) 8.0 MG/DL 8.5-10.1 L CBC W/AUTO [id number] 06:53:00 Test Item Value Reference Range Interpretation [...] code YES DIFF/SCN CRITERIA = MDIFF) WBC [id number] 06:53:00 Test Item Value Reference Range Interpretation Comments SEGMENTED NEUTROPHILS (test code = SEG) % 40-75 LYMPHOCYTE (test code = LYMPH) % 12.6-43.5 CBC W/AUTO [id number] 06:53:00 Test Item Value Reference Range Interpretation [...] code YES DIFF/SCN CRITERIA = MDIFF) WBC [id number] 06:53:00 Test Item Value Reference Range Interpretation Comments SEGMENTED NEUTROPHILS (test code = SEG) % 40-75 LYMPHOCYTE (test code = LYMPH) % 12.6-43.5 CBC W/MANUAL [id number] 10:04:00 Test Item Value Reference Range Interpretation [...] EOS) 0 % 0.0-5.2 N CBC W/MANUAL [id number] 08:03:00 Test Item Value Reference Range Interpretation [...] code = LYMPH) % 12.6-43.5 BASIC METABOLIC [id number] 07:43:00 Test Item Value Reference Range Interpretation [...] CA) 8.3 MG/DL 8.5-10.1 L BASIC METABOLIC [id number] 07:38:00 Test Item Value Reference Range Interpretation [...] = CA) 8.3 MG/DL 8.5-10.1 L URINALYSIS [id number] 02:34:00 Test Item Value Reference Range Interpretation [...] LEUU) Urine Specimen Type: Clean CatchCOMPREHENSIVE METABOLIC [id number] 22:48:00 Test Item Value Reference Range Interpretation [...] TOTAL (test code = ALKP) CBC W/AUTO [id number] 22:37:00 Test Item Value Reference Range Interpretation [...] = NO DIFF/SCN CRITERIA MDIFF) TROPONIN I [id number] 22:35:00 Test Item Value Reference Range Interpretation Comments TROPONIN I RAPID 0.00 ng/mL 0.00-0.08 N - The use o f serial (test code = sampling and te sting TROPIRAP) protocol is a recommended pra ctice- An elevated tro ponin level alone is often not sufficient for diagnosis of my ocardial infarction. LACTIC ACID [id number] 22:27:00 Test Item Value Reference Range Interpretation Comments LACTIC ACID POC (test code = 0.80 MMOL/L 0.90-1.70 L LACTP)
--- OUTSIDE RECORDS SUMMARY | 2022-07-05 18:36 | XMS REPORT | Clinical Summary ---
:1945 Author Organization [facility] Address [address] [place] [address] Care Team Providers Name Role Phone Sara Woodall MD Unavailable [phone] Jeffrey Rodney MD Primary Care Provider Allergies No known active allergies Medications Medication Sig Dispensed Refills Start End Date Status Date SAW BRIT ORAL Take 2 capsules 0 Active by mouth daily. UNABLE TO FIND Take 4 capsules 0 Active by mouth. Med Name: Feliz fruit CHOLECALCIFEROL, Take 2,000 Units 0 Active VITAMIN D3, ORAL by mouth daily. levoFLOXacin Take 1 tablet 30 tablet 6 Act devan (Levaquin) 500 mg (500 mg) by mouth 0 tabletIndications: daily. Other pancytopenia valACYclovir Take 1 tablet 30 tablet 6 Act devan (VALTREX) 500 mg (500 mg) by mouth 0 tabletIndications: daily. Other pancytopenia triamcinolone Apply 1 0 Active (KENALOG) 0.1% cream application 0 topically to affected area(s) as needed. multivitamin capsule Take 1 capsule by 0 Active mouth daily. ascorbic acid, Take 1,000 mg by 0 Active vitamin C, (VITAMIN mouth daily. C) 1000 mg tablet GLUTATHIONE MISC 6 capsules by 0 Active miscellaneous route daily. L.acid-B.bifidum-B.a Take 1 capsule by 0 Active nimal-FOS (Probiotic mouth 3 (three) Complex) 25 billion times a day. cell -100 mg cap cyanocobalamin, Take 1,000 mcg by 0 Active vitamin B-12, (B-12 mouth daily. Compliance) 1,000 mcg/mL kit levoFLOXacin Take 1 tablet 30 tablet 6 Act devan (Levaquin) 500 mg (500 mg) by mouth 2 tabletIndications: daily. Myelodysplastic syndrome (clinical) fluconazole Take 1 tablet 30 tablet 6 08/05/19 Disc ontinued (DIFLUCAN) 200 mg (200 mg) by mouth 0 22 tabletIndications: daily. Other pancytopenia Active Problems Patient Care Coordination Note Formatting of this note might be differe nt from the original. Patient prefers to be called his nicknam e "Ben" please update patient information. Thank you Problem Noted Date Other pancytopenia 12/02/2015 Encounters Date Type Specialty Care Team Description 09/21/2021 Orders Only Leukemia Reynaldo-Wicho, Myelodyspla stic syndrome ANN Patterson (clinical) (Maia magdaleno Dx) after 07/05/2021 Surgical History Surgery Date Site/Laterality Comments COLONOSCOPY 05/23/2012 - Should show on 05/22/2013 medical records HERNIA REPAIR 1969/1979,1999 4 or 5 inguenal hernia repairs UPPER GASTROINTESTINAL 05/23/2012 - Shows on med records ENDOSCOPY 05/22/2013 TONSILLECTOMY 05/23/1966 - 05/22/1967 Medical History Medical History Date Comments Hearing loss Anemia Dont know Medical records have info Single acquired kidney cyst Other pancytopenia 12/02/2015 Family History Medical History Relation Name Comments -Genitourinary (Bladder, Kidney, Prostate, Testicle) Brother 1 -Breast cancer Sister Relation Name Status Comments Brother 1 Alive currently being [facility] at [facility] Brother 2 Alive Nephrectomy at a ge 18 months Father (Age 90) fell and broke neck Mother (Age 83) possible mesen teric ischemia Sister Alive diagnosed 10-15 yrs ago Son 1 Alive Son 2 Alive herniarraphy as a child Social History Tobacco Use Types Packs/Day Years Used Date Smoking Tobacco: Former Cigarettes 0.3 15 03/23 - 1979 Alcohol Use Standard Drinks/Week Comments No 0 (1 standard drink = 0.6 oz pure alcoho l) stopped drinking 6 years ago. Sex Assigned at Date Recorded Male 12/03/2020 10:29 AM CDT Job Start Date Occupation Industry Not on file Not on file Not on file Obstetrics History Last Filed Vital Signs Not on file Plan of Treatment Health Maintenance Due Date Last Done Comments COVID-19 Vaccination (#1) 1945 Results Not on fileafter 07/05/2021 Insurance Payer Benefit Plan Subscriber ID Effective Phone Address Typ e / Group Dates MEDICARE MEDICARE PART [id number] 2011-Pres [phone] [employer] Medicare A AND B ent [address] [place] [address] [employer] [place] PPO [id number] 2011-Prese [address] [place] [address] [place] [address] Care Teams General Agent Relationship Specialty Start Date End Date Sara Woodall PCP - External Referring Hematology MD [address] [address] Jeffrey Rodney MD PCP - General Leukemia 12/02/[address] [place] [id number]
[2022-07-05] MEDS ORDERED: ONDANSETRON 4 MG/2 ML VIAL ONE ×2 (19:36→21:06)
[2022-07-05] MEDS ORDERED: NA CHLORIDE 0.9% 500 ML ONE (19:36)
[2022-07-05] MEDS ORDERED: FAMOTIDINE 20 MG/2 ML VIAL IV ONE (19:36)
[2022-07-05] MEDS ORDERED: FENTANYL CITR 100 MCG/2 ML ONE (19:36)
[2022-07-05 19:48] LABS: Absolute Lymphocytes (CBC) 0.9 K/uL (0.7-4.9); Hematocrit 29.8 % (39.6-49.0); Lymphocytes % 28.3 % (15.3-44.8); MCV 104.1 fL (80-100); RBC Red Blood Cell Count 2.87 M/uL (4.33-5.43)
[2022-07-05 19:50] LABS: Protime INR 1.17
--- NOTE | 2022-07-05 20:01 | RAD REPORT ---
[facility] 7[facility]34 pm CLINICAL HISTORY: ABDOMINAL DISTENTION COMPARISON: Chest Single View dated 04/11/2020 TECHNIQUE: Portable AP view of the chest. FINDINGS: The lungs are clear. No pneumothorax or effusion. The cardiomediastinal contours are unrem arkable. IMPRESSION: No acute cardiopulmonary process.
[2022-07-05 20:07] LABS: Albumin 3.8 g/dL (3.4-5.0); Bilirubin Direct 0.3 mg/dL (0-0.2); Magnesium 2.1 mg/dL (1.6-2.4); Potassium 3.5 mmol/L (3.5-5.1); Protein, Total 8.2 g/dL (6.4-8.2); Troponin High Sensitivity 5.3 pg/mL (<58.9)
[2022-07-05 20:11] LABS: SARS-CoV-2 Antigen Rapid Res Negative (Negative)
[2022-07-05 20:23] LABS: Urine Blood Negative (Negative); Urine Glucose Negative (Negative); Urine Protein 1+ (Negative); Urine Specific Gravity 1.015 (1.005-1.030); Urine pH 8.5 (5.0-7.0)
[2022-07-05] MEDS ORDERED: PIPERACIL/TAZO 3.375 GM VIAL IV ONE (20:31)
[2022-07-05] MEDS ORDERED: NA CHLORIDE 0.9% 100 ML ONE (20:31)
[2022-07-05] MEDS ORDERED: NA CHLORIDE 0.9% 1,000 ML ONE (20:33)
[2022-07-05 20:40] LABS: Urine Bacteria None Seen /HPF (<20); Urine Mucus Slight /HPF (None Seen); Urine RBC <5 /HPF (None Seen)
--- NOTE | 2022-07-05 21:27 | RAD REPORT ---
EXAM DESCRIPTION: CT - Angio Aorta For Dissection - 07/05/2022 8:53 pm CLINICAL HISTORY: Abdominal pain for 5 hours COMPARISON: CT abdomen pelvis 04/12/2020 TECHNIQUE: Dynamically enhanced 3 mm thick images of the chest, abdomen, and pelvis were obtained du ring administration of approximately 90mL Isovue 370 IV contrast. Sagittal, coronal, and maximal inte nsity projection reconstruction images were generated and reviewed. Exam utilizes a protocol to evalu ate entire course of the aorta. All CT scans are performed using dose optimization technique as appropriate and may include automated exposure control or mA/KV adjustment according to patient size. FINDINGS: Moderate right hydronephrosis is noted. A 5 millimeter calculus is seen at the level of th e pelviureteric junction which may be the cause of the obstruction. A second nonobstructing right sup erior calyx 4 millimeter calculus is noted. Mild perinephric fat stranding on the right. Aorta is normal in diameter with no dissection or other acute aortic findings. Mild scattered atheros clerotic calcifications along the thoracic and abdominal aorta Reconstructed images show no other sig nificant findings. Pulmonary arteries are normal as well. No mass or infiltrate in the lung parenchyma. No pleural thickening, pleural effusion or pneumothorax . No abnormal mediastinal or hilar mass or lymphadenopathy seen. No chest wall mass or abnormal axillar y lymphadenopathy. Celiac, SMA and renal arteries show no suspicious findings. Solid abdominal viscera and bowel show no other significant findings. No mass or abnormal lymphadenopathy. Left renal mid pole 3.4 centimeter fluid density cyst is grossly stable. Few colonic diverticula with out evidence of acute diverticulitis. Improvement of focal soft tissue thickening in the left inguina l region since the prior exam. Surgical heber in that location are again noted, findings which prob ably relate to prior hernia repair. 3 millimeter right lower lobe calcified granuloma is incidentally noted. IMPRESSION: Unremarkable CT angiogram of the thoracic and abdominal aorta. Moderate right hydronephrosis. Obstructing 5 millimeter right pelviureteric junction calculus. The right superior calyx 4 millimeter nonobstructing calculus is also noted. No other significant findings on CT chest, abdomen, and pelvis examination. Incidental findings, as a jennifer. The findings were communicated to Shola Mares on 07/05/2022 at 21:20 hours.
--- NOTE | 2022-07-05 21:34 | ER ---
Nurse's Notes [facility] Name: Sridhar Martinez Age: 77 yrs Sex: Male : 1945 Arrival Date: 07/05/2022 Time: 18:16 Bed 24 Private MD: Diagnosis: Hydronephrosis with renal and ureteral calculous obstruction-5 mm upj, intractable pain Presentation: 07/05 18:52 Chief complaint: Patient states: abdominal pain x3 hours, but much worse x1.5 hours. [facility] Coronavirus screen: Vaccine status: Patient reports receiving the 2nd dose of the covid vaccine. Client denies travel out of the [place] in the last 14 days. Ebola Screen: Patient negative for fever greater than or equal to 101.5 degrees Fahrenheit, and additional compatible Ebola Virus Disease symptoms Patient denies exposure to infectious person. Patient denies travel to an Ebola-affected area in the 21 days before illness onset. Initial Sepsis Screen: Does the patient meet any 2 criteria? No. Patient's initial sepsis screen is negative. Does the patient have a suspected source of infection? No. Patient's initial sepsis screen is negative. Risk Assessment: Do you want to hurt yourself or someone else? Patient reports no desire to harm self or others. Onset of symptoms was July 05, 2022. 18:52 Method Of Arrival: Ambulatory [facility] 18:52 Acuity: TIFFANY 3 [facility] Triage Assessment: 18:54 General: Appears distressed, uncomfortable, slender, well groomed, well developed, [facility] Behavior is calm, cooperative, appropriate for age, agitated. Pain: Complains of pain in abdomen. GI: Reports lower abdominal pain. 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 - Social history:: Smoking status: Patient reports the use of cigarette tobacco products, Patient/guardian denies using tobacco, the patient reports quitting approximately 35 years ago. Assessment: 19:05 General: Appears uncomfortable, Behavior is cooperative. Pain: Complains of pain in mb9 left lower quadrant and right lower quadrant Pain radiates to right flank Pain currently is 10 out of 10 on a pain scale. Quality of pain is described as throbbing, Pain began suddenly, Is continuous. 19:05 Neuro: Level of Consciousness is awake, alert, obeys commands, Oriented to person, mb9 place, time, situation, Appropriate for age. Cardiovascular: Heart tones S1 S2 present Rhythm is regular. Respiratory: Airway is patent Respiratory effort is even, unlabored, Respiratory pattern is regular, symmetrical. GI: Abdomen is flat, non-distended, Bowel sounds present X 4 quads. Abd is soft Abdomen is tender to palpation in right lower quadrant and left lower quadrant Reports nausea, vomiting. : Urine is clear. EENT: No signs and/or symptoms were reported regarding the EENT system. Derm: Skin is pink, warm \T\ dry. Musculoskeletal: Range of motion: intact in all extremities. 20:38 Reassessment: pt taken to CT via stretcher. mb9 20:40 Reassessment: Patient and/or family updated on plan of care and expected duration. Pain mb9 level reassessed. Patient is alert, oriented x 3, equal unlabored respirations, skin warm/dry/pink. Patient states feeling better. Patient states symptoms have improved. Pain: Pain currently is 2 out of 10 on a pain scale. 21:30 Reassessment: No changes from previously documented assessment. Patient and/or family mb9 updated on plan of care and expected duration. Pain level reassessed. Patient is alert, oriented x 3, equal unlabored respirations, skin warm/dry/pink. Patient states feeling better. Patient states symptoms have improved. 21:46 Reassessment: report given to KATALINA Johnson. mb9 Vital Signs: 18:52 BP 117 / 96; Pulse 79; Resp 22; Temp 98.6; Pulse Ox 100% ; Weight 78.93 kg; Height 5 [facility] ft. 10 in. (177.80 cm); Pain 10/10; 20:37 BP 143 / 74; Pulse 81; Resp 18; Pulse Ox 100% on 1 lpm NC; Pain 2/10; mb9 21:33 BP 158 / 77; Pulse 77; Resp 18; Pulse Ox 99% on R/A; mb9 18:52 Body Mass Index 24.97 (78.93 kg, 177.80 cm) [facility] ED Course: 18:16 Patient arrived in ED. as 18:52 Arm band placed on right wrist. [facility] 18:54 Triage completed. jh5 19:02 Shola Mares MD is Attending Physician. [facility] 19:09 Ana Laura Mcbride, KATALINA is Primary Nurse. mb9 19:40 Inserted saline lock: 18 gauge in left antecubital area, using aseptic technique. mb9 19:40 EKG done, by ED staff, reviewed by Shola Mares MD. mb9 19:48 Type And Screen Sent. mb9 19:48 SARS RAPID Sent. mb9 19:49 Basic Metabolic Panel Sent. mb9 19:49 CBC with Diff Sent. mb9 19:49 LFT's Sent. mb9 19:49 Magnesium Sent. mb9 19:49 NT PRO-BNP Sent. mb9 19:49 PT-INR Sent. mb9 19:49 Troponin HS Sent. mb9 20:00 Inserted saline lock: 20 gauge in right hand, using aseptic technique. mb9 20:23 Blood Culture Adult (2) Sent. mb9 21:33 John Perez MD is Hospitalizing Provider. [facility] Administered Medications: 19:40 Drug: fentaNYL (PF) 50 mcg Route: IVP; Site: left antecubital; mb9 19:48 Drug: Zofran (Ondansetron) 4 mg Route: IVP; Site: left antecubital; mb9 19:49 Drug: NS 0.9% 500 ml Route: IV; Rate: bolus; Site: left antecubital; mb9 19:49 Drug: Pepcid (famotidine) 20 mg Route: IVP; Site: left antecubital; mb9 21:09 Follow up: Response: No adverse reaction mb9 20:37 Drug: NS 0.9% 1000 ml Route: IV; Rate: 125 ml/hr; Site: left antecubital; mb9 20:37 Drug: Zosyn (piperacillin-tazobactam) 3.375 grams Route: IVPB; Infused Over: 60 mins; mb9 Site: right hand; 21:56 Follow up: Response: No adverse reaction; IV Status: Completed infusion mb9 21:09 Drug: Zofran (Ondansetron) 4 mg Route: IVP; Site: left antecubital; mb9 21:09 Drug: fentaNYL (PF) 25 mcg Route: IVP; Site: left antecubital; mb9 21:56 Drug: Ketorolac 15 mg Route: IVP; Site: left antecubital; mb9 21:56 Drug: Flomax (tamsulosin) 0.4 mg Route: PO; mb9 Outcome: 21:33 Decision to Hospitalize by Provider. spencer 22:41 Patient left the ED. mw2 Signatures: Shola Mares MD MD cha Martinez, Amelia as Gatti, MyKena mw2 Kiera Rosales RN RN jh5 Ana Laura Mcbride RN RN mb9 Corrections: (The following items were deleted from the chart) 18:55 18:52 Pulse 79bpm; Resp 22bpm; Pulse Ox 100%; 78.93 kg; Height 5 ft. 10 in.; BMI: 24.9; jh5 Pain 03/01; jh5
--- NOTE | 2022-07-05 21:34 | EDPHYS ---
Physician Documentation [facility] Name: Sridhar Martinez Age: 77 yrs Sex: Male : 1945 Arrival Date: 07/05/2022 Time: 18:16 Bed 24 Private MD: ED Physician Shola Mares HPI: 07/05 19:20 This 77 yrs old Male presents to ER via Ambulatory with complaints of spencer Vomiting, Abdominal Pain. 19:20 The patient presents to the emergency department with nausea, vomiting, abdominal pain, spencer of the right lower quadrant and left lower quadrant. Onset: The symptoms/episode began/occurred today. Possible causes: unknown. The symptoms are aggravated by nothing. The symptoms are alleviated by nothing. Associated signs and symptoms: The patient has no apparent associated signs or symptoms. Severity of symptoms: At their worst the symptoms were mild moderate in the emergency department the symptoms are unchanged. The patient has not experienced similar symptoms in the past. 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 - Social history:: Smoking status: Patient reports the use of cigarette tobacco products, Patient/guardian denies using tobacco, the patient reports quitting approximately 35 years ago. ROS: 19:21 Constitutional: Negative for fever, chills, and weight loss, Eyes: Negative for injury, spencer pain, redness, and discharge, ENT: Negative for injury, pain, and discharge, Neck: Negative for injury, pain, and swelling, Cardiovascular: Negative for chest pain, palpitations, and edema, Respiratory: Negative for shortness of breath, cough, wheezing, and pleuritic chest pain, Back: Negative for injury and pain, : Negative for injury, bleeding, discharge, and swelling, MS/Extremity: Negative for injury and deformity, Skin: Negative for injury, rash, and discoloration, Neuro: Negative for headache, weakness, numbness, tingling, and seizure, Psych: Negative for depression, anxiety, suicide ideation, homicidal ideation, and hallucinations, Allergy/Immunology: Negative for hives, rash, and allergies, Endocrine: Negative for neck swelling, polydipsia, polyuria, polyphagia, and marked weight changes, Hematologic/Lymphatic: Negative for swollen nodes, abnormal bleeding, and unusual bruising. 19:21 Abdomen/GI: Positive for abdominal pain, of the right lower quadrant and left lower quadrant. Exam: 19:21 Constitutional: This is a well developed, well nourished patient who is awake, alert, spencer and in no acute distress. Head/Face: Normocephalic, atraumatic. Eyes: Pupils equal round and reactive to light, extra-ocular motions intact. Lids and lashes normal. Conjunctiva and sclera are non-icteric and not injected. Cornea within normal limits. Periorbital areas with no swelling, redness, or edema. ENT: Nares patent. No nasal discharge, no septal abnormalities noted. Tympanic membranes are normal and external auditory canals are clear. Oropharynx with no redness, swelling, or masses, exudates, or evidence of obstruction, uvula midline. Mucous membranes moist. Neck: Trachea midline, no thyromegaly or masses palpated, and no cervical lymphadenopathy. Supple, full range of motion without nuchal rigidity, or vertebral point tenderness. No Meningismus. Chest/axilla: Normal chest wall appearance and motion. Nontender with no deformity. No lesions are appreciated. Cardiovascular: Regular rate and rhythm with a normal S1 and S2. No gallops, murmurs, or rubs. Normal PMI, no JVD. No pulse deficits. Respiratory: Lungs have equal breath sounds bilaterally, clear to auscultation and percussion. No rales, rhonchi or wheezes noted. No increased work of breathing, no retractions or nasal flaring. Back: No spinal tenderness. No costovertebral tenderness. Full range of motion. Male : Normal genitalia with no discharge or lesions. Skin: Warm, dry with normal turgor. Normal color with no rashes, no lesions, and no evidence of cellulitis. MS/ Extremity: Pulses equal, no cyanosis. Neurovascular intact. Full, normal range of motion. Neuro: Awake and alert, GCS 15, oriented to person, place, time, and situation. Cranial nerves II-XII grossly intact. Motor strength 5/5 in all extremities. Sensory grossly intact. Cerebellar exam normal. Normal gait. Psych: Awake, alert, with orientation to person, place and time. Behavior, mood, and affect are within normal limits. 19:21 Abdomen/GI: Inspection: abdomen appears normal, Bowel sounds: normal, Palpation: mild abdominal tenderness, in the suprapubic area, right lower quadrant and left lower quadrant, Liver: no appreciated palpable abnormalities, Hernia: not appreciated, no black stools. 21:58 ECG was reviewed by the Attending Physician. [facility] Vital Signs: 18:52 BP 117 / 96; Pulse 79; Resp 22; Temp 98.6; Pulse Ox 100% ; Weight 78.93 kg; Height 5 jh5 ft. 10 in. (177.80 cm); Pain 10/10; 20:37 BP 143 / 74; Pulse 81; Resp 18; Pulse Ox 100% on 1 lpm NC; Pain 2/10; mb9 21:33 BP 158 / 77; Pulse 77; Resp 18; Pulse Ox 99% on R/A; mb9 18:52 Body Mass Index 24.97 (78.93 kg, 177.80 cm) 5 MDM: 19:02 Patient medically screened. [facility] 19:24 Differential diagnosis: Nonspecific abd pain, pancreatitis, appendicitis, spencer diverticulitis, gastroenteritis, Cholelithiasis, diverticulitis, gastritis, GI Bleed, Hepatitis, Irritable bowel syndrome, myocardia ischemia or infarction, non-specific abd pain. Data reviewed: vital signs, nurses notes, lab test result(s), EKG, radiologic studies, CT scan, plain films, ultrasound. Consideration of Admission/Observation Patient was admitted/placed on observation. Escalation of care including admission/observation considered. Test considered but Not performed: MRI: mri abd pelvis. Historians other than the Patient: Daughter/Son: SON. Care significantly affected by the following chronic conditions: MDS. 21:32 Discussion of test interpretation with radiology: I had a discussion with radiology [facility] regarding a test interpretation. 5 mm upj right. 07/05 19:18 Order name: Basic Metabolic Panel [facility] 07/05 19:18 Order name: CBC with Diff [facility] 07/05 19:18 Order name: LFT's [facility] 07/05 19:18 Order name: Magnesium [facility] 07/05 19:18 Order name: NT PRO-BNP [facility] 07/05 19:18 Order name: PT-INR [facility] 07/05 19:18 Order name: Troponin HS [facility] 07/05 19:18 Order name: Lipase [facility] 07/05 19:18 Order name: Urine Microscopic Only [facility] 07/05 19:18 Order name: Lactate w/ 2H reflex if indic. [facility] 07/05 19:18 Order name: SARS RAPID [facility] 07/05 19:18 Order name: Type And Screen [facility] 07/05 19:30 Order name: Blood Culture Adult (2) [facility] 07/05 19:50 Order name: Protime (+INR); Complete Time: 20:22 [facility] 07/05 19:18 Order name: XRAY Chest (1 view) [facility] 07/05 19:18 Order name: CT Abd/Pelvis - IV Contrast Only [facility] 07/05 19:57 Order name: CBC with Automated Diff; Complete Time: 20:22 [facility] 07/05 20:02 Order name: RAD; Complete Time: 20:22 [facility] 07/05 20:07 Order name: Basic Metabolic Panel; Complete Time: 20:22 [facility] 07/05 20:07 Order name: Liver (Hepatic) Function; Complete Time: 20:22 [facility] 07/05 20:07 Order name: Troponin High Sensitivity; Complete Time: 20:22 [facility] 07/05 20:07 Order name: NT PRO-BNP; Complete Time: 20:22 [facility] 07/05 20:07 Order name: Magnesium; Complete Time: 20:22 [facility] 07/05 20:07 Order name: Lipase; Complete Time: 20:22 [facility] 07/05 20:11 Order name: SARS-COV-2 Antigen Rapid; Complete Time: 20:22 [facility] 07/05 20:24 Order name: Urine Dipstick-Ancillary; Complete Time: 21:25 [facility] 07/05 20:40 Order name: Urine Microscopic Only; Complete Time: 21:25 [facility] 07/05 20:45 Order name: Lactate w/ 2H reflex if indic.; Complete Time: 21:25 [facility] 07/05 20:57 Order name: Type and Screen; Complete Time: 21:25 [facility] 07/05 21:28 Order name: CT [facility] 07/05 19:18 Order name: EKG; Complete Time: 19:19 [facility] 07/05 19:18 Order name: Cardiac monitoring; Complete Time: 19:49 [facility] 07/05 19:18 Order name: EKG - Nurse/Tech; Complete Time: 19:49 [facility] 07/05 19:18 Order name: IV Saline Lock; Complete Time: 19:50 [facility] 07/05 19:18 Order name: Labs collected and sent; Complete Time: 19:50 [facility] 07/05 19:18 Order name: O2 Per Protocol; Complete Time: 19:50 07/05 19:18 Order name: O2 Sat Monitoring; Complete Time: 19:50 [facility] 07/05 19:18 Order name: Urine Dipstick-Ancillary (obtain specimen); Complete Time: 20:24 07/05 19:18 Order name: IV Saline Lock - Large Bore; Complete Time: 19:48 07/05 21:49 Order name: Abdomen 1 View (KUB) XRAY 07/05 22:27 Order name: RAD EDMS EC:58 Rate is 79 beats/min. Rhythm is regular. QRS [place] is Normal. [place] interval is normal. QRS spencer interval is normal. QT interval is normal. No Q waves. T waves are Normal. No ST changes noted. Clinical impression: NSR w/ Non-specific ST/T Changes and No evidence of ischemia. Interpreted by me. Reviewed by me. Administered Medications: 19:40 Drug: fentaNYL (PF) 50 mcg Route: IVP; Site: left antecubital; mb9 19:48 Drug: Zofran (Ondansetron) 4 mg Route: IVP; Site: left antecubital; mb9 19:49 Drug: NS 0.9% 500 ml Route: IV; Rate: bolus; Site: left antecubital; mb9 19:49 Drug: Pepcid (famotidine) 20 mg Route: IVP; Site: left antecubital; mb9 21:09 Follow up: Response: No adverse reaction mb9 20:37 Drug: NS 0.9% 1000 ml Route: IV; Rate: 125 ml/hr; Site: left antecubital; mb9 20:37 Drug: Zosyn (piperacillin-tazobactam) 3.375 grams Route: IVPB; Infused Over: 60 mins; mb9 Site: right hand; 21:56 Follow up: Response: No adverse reaction; IV Status: Completed infusion mb9 21:09 Drug: Zofran (Ondansetron) 4 mg Route: IVP; Site: left antecubital; mb9 21:09 Drug: fentaNYL (PF) 25 mcg Route: IVP; Site: left antecubital; mb9 21:56 Drug: Ketorolac 15 mg Route: IVP; Site: left antecubital; mb9 21:56 Drug: Flomax (tamsulosin) 0.4 mg Route: PO; mb9 Disposition Summary: 07/05/22 21:33 Hospitalization Ordered Hospitalization Status: Observation spencer Provider: John Perez cha Location: Telemetry/MedSurg (observation) spencer Condition: Fair spencer Problem: new spencer Symptoms: have improved spencer Bed/Room Type: Standard [facility] Room Assignment: 426(07/05/22 21:54) Diagnosis - Hydronephrosis with renal and ureteral calculous obstruction - 5 mm upj, spencer intractable pain(07/05/22 21:48) Forms: - Medication Reconciliation Form spencer - SBAR form spencer Signatures: Dispatcher [employer] EDMS Citlali Jha RN RN mw Anderson, Corey, MD MD cha Rees, Jessica, RN RN jh5 Rae, Ana Laura Ruvalcaba RN RN mb9 Corrections: (The following items were deleted from the chart) 21:48 21:33 Hydronephrosis with renal and ureteral calculous obstruction - 5 mm upj spencer [facility] 21:54 21:33 spencer mw
[2022-07-05] MEDS ORDERED: TAMSULOSIN 0.4 MG SR CAP ONE (21:52)
[2022-07-05] MEDS ORDERED: KETOROLAC 30 MG/ML INJ ONE (21:53)
[2022-07-05 22:08] VITALS: BMI 24.8
--- NOTE | 2022-07-05 22:27 | RAD REPORT ---
EXAM DESCRIPTION: RAD - Abdomen 1 View (KUB) - 07/05/2022 10:13 pm CLINICAL HISTORY: ABD PAIN COMPARISON: Angio Aorta For Dissection dated 07/05/2022 TECHNIQUE: Single AP view of the abdomen. FINDINGS: Nonobstructive bowel gas pattern. No air-fluid levels, free air, or pneumatosis. Mild stoo l burden throughout the colon. No suspicious calcifications. No significant bony abnormality. Contrast excretion within dilated right renal collecting system and the bladder. IMPRESSION: Nonobstructive bowel gas pattern. Mild stool burden throughout the colon.
[2022-07-05] MEDS: NA CHLORIDE 0.9% 1,000 ML IV SCH (22:29)
[2022-07-05] MEDS ORDERED: MORPHINE 4 MG/ML SYR IV PRN (22:29)
[2022-07-05] MEDS ORDERED: ACETAMINOPHEN 325 MG TABLET PO PRN (22:29)
[2022-07-05 23:44] VITALS: O2SAT 99
[2022-07-06] MEDS ORDERED: ONDANSETRON 4 MG/2 ML VIAL IV PRN (03:00)
[2022-07-06 06:03] LABS: Absolute Lymphocytes (CBC) 1.2 K/uL (0.7-4.9); Hematocrit 26.4 % (39.6-49.0); Lymphocytes % 34.9 % (15.3-44.8); MCV 103.7 fL (80-100); MPV 9.1 fL (7.6-11.3); RBC Red Blood Cell Count 2.54 M/uL (4.33-5.43)
[2022-07-06 06:26] LABS: Albumin 3.1 g/dL (3.4-5.0); Bilirubin Direct 0.2 mg/dL (0-0.2); Potassium 3.8 mmol/L (3.5-5.1); Protein, Total 6.6 g/dL (6.4-8.2)
[2022-07-06] MEDS: NA CHLORIDE 0.9% 1,000 ML IV SCH (06:37)
[2022-07-06 08:02] LABS: Platelet Estimate ADEQ
[2022-07-06 08:05] LABS: Anisocytosis SLIGHT; Blood Morphology Comment NOTED (NOT SEEN); Macrocytosis 1+
[2022-07-06] MEDS ORDERED: CEFTRIAXONE 1,000 MG in NA CHLORIDE 0.9% 50 ML IVPB SCH (09:00)
[2022-07-06] MEDS ORDERED: FAMOTIDINE 20 MG/2 ML VIAL IV SCH (09:00)
[2022-07-06] MEDS ORDERED: TAMSULOSIN 0.4 MG SR CAP PO SCH (09:00)
--- NOTE | 2022-07-06 09:20 | RAD REPORT ---
EXAM DESCRIPTION: RAD - Abdomen 1 View (KUB) - 07/06/2022 9:03 am CLINICAL HISTORY: 5 mm right upj COMPARISON: Abdomen 1 View (KUB) dated 07/05/2022; Angio Aorta For Dissection dated 07/05/2022 FINDINGS: Nonobstructive bowel gas pattern. No acute osseous abnormality.Visualized lungs are unrema rkable.No abnormal calcifications. Similar moderate volume of stool in the ascending and proximal tra nsverse colon. Of stool burden is otherwise low. Scoliosis. Contrast present within the bladder. The small right proximal ureteral stone present on the CT is not confidently identified on this radiograp h. IMPRESSION: Nonobstructive bowel gas pattern. No identifiable ureteral stone. It is possible that th e stone either passed or is obscured by overlying bowel contents given its small size.
[2022-07-06 12:24] VITALS: BP 110/53; TEMP 98.3
--- NOTE | 2022-07-06 17:11 | EKG ---
Test Date: 2022-07-05 Test Time: 19:22:51 Hop Worker: MB MEASUREMENT RESULTS: Intervals: Rate: 79 TN: 188 QRSD: 112 QT: 382 QTc: 438 [place]: P: 74 TN: 188 QRS: -71 T: 87 INTERPRETIVE STATEMENTS: Sinus rhythm with premature atrial complexes Left anterior fascicular block Nonspecific ST and T wave abnormality Abnormal ECG Compared to ECG 04/12/2020 22:09:15 Atrial premature complex(es) now present ST (T wave) deviation now present Sinus tachycardia no longer present Electronically Signed On 07-06-22 17:08:56 CLIPPER MACHINE OPERATOR by Omid Eubanks
--- NOTE | 2022-07-06 21:51 | P.SSS ---
Patient History Date of Service: 07/06/22 Reason for admission: right abdomen pain History of Present Illness: ARIANA IS A PATIENT WITH MDS AND LOW ANC FOR LONG DURATION. HE TAKES ANTIBIOTIC, ANTIVIRAL AND ANTIFUNGAL FOR SEPSIS PREVENION FROM Wilma PORTILLO. HE COMES WITH RIGHT SIDE ABDOMEN PAIN AND DR. PORTILLO ADMITTED HIM CT SWOWS URETERIC STONE. HE IS PAINFREE NOW AND LAST TIME HE HAD PAIN MEDCINE LAST NIGHT. HE IS STABLE TO GO HOME AND FU WITH DR. ORTEGA. Allergies No Known Allergies Allergy (Verified 04/13/20 04:26) Home medications list reviewed: Yes Home Medications: NK [No Home Meds] 07/06/22 - Past Medical/Surgical History Has patient received pneumonia vaccine in the past: No Diabetic: No -: Myodysplastic Syndrome -: Hernia Repair x5 -: Tonsilectomy -: right hand sx - Social History Smoking Status: Never smoker Alcohol use: No CD- Drugs: No Caffeine use: Yes Place of Residence: Home Review of Systems 10-point ROS is otherwise unremarkable General: As per HPI Physical Examination - Vital Signs Temperature: 98.3 F Blood Pressure: 110/53 Pulse: 57 Respirations: 16 Pulse Ox (%): 93 - Physical Exam General: In no apparent distress, Oriented x3 HEENT: Atraumatic, PERRLA, Mucous membr. moist/pink, EOMI, Sclerae nonicteric Neck: Supple, 2+ carotid pulse no bruit, No LAD, Without JVD or thyroid abnormality Respiratory: Clear to auscultation bilaterally, Normal air movement Cardiovascular: Regular rate/rhythm, Normal S1 S2 Gastrointestinal: Normal bowel sounds, No tenderness Musculoskeletal: No tenderness Integumentary: No rashes Neurological: Normal gait, Normal speech, Normal strength at 5/5 x4 extr, Normal tone, Normal affect Lymphatics: No axilla or inguinal lymphadenopathy - Diagnosis (Problem(s)) (1) MDS (myelodysplastic syndrome) Status: Acute (2) Ureter colic Status: Acute Plan: PLAN ABOVE. 'I CALLED IN TRAMADOL FOR PAIN AND TAMSULOSIN FOR PASSAGE OF STONE. HE IS STABLE. - Disposition Disposition: ROUTINE DISCHARGE
--- NOTE | 2022-07-06 22:59 | P.CNS ---
Date of Consult: 07/06/22 Reason for Consult: Right flank pain Requesting Physician: Shola Mares Chief Complaint: right abdomen pain History of Present Illness: 77-year-old gentleman with myelodysplastic syndrome but no other significant medical history presents for the first time with a 3 to 4 mm right UPJ calculus. He came to the emergency department because he was having significant pain and did not know what the cause of that pain was. This caused him to be significantly nervous and concerned; and initially it was difficult for the pain to be managed. He was admitted for pain control, and as of my visit with him, he was ostensibly comfortable, completely dressed and ready to go home. He denies any prior stone event. He denied any fever or chills, intractable nausea or vomiting, or other bothersome signs or symptoms at present. He was worried about development of constipation associated with the narcotic that he had been given via the emergency department and on observation admission. Past medical history: Myelodysplastic syndrome Past surgical history: 5 bilateral inguinal hernia repair operations but no other abdominal or thoracic surgeries No known drug allergies Medications: None Family history: His brother has prostate cancer Social history: He smoked 3 to 4 cigarettes/day for 35 years, but he feels like he quit 30 years ago Examination: Well-appearing, well-developed, well-nourished, no acute distress Alert, awake, oriented x3 No dyspnea or sign of respiratory distress No cervical/supraclavicular adenopathy Abdomen soft, nontender, nondistended Comfortable and well-appearing WBC 3.6, hemoglobin 8.9, platelets 116 -all low Urinalysis negative CT abdomen and pelvis angiogram looking for the dissection of the aorta protocol reviewed in detail: Mild right-sided hydronephrosis associated with a very tiny, 3 to 4 mm, proximal UPJ calculus with no significant perinephric stranding. Assessment and recommendation: 77-year-old gentleman with myelodysplastic syndrome in the absence of any other significant past medical history, brother with prostate cancer, presented via the emergency department 07/06/2022 with right flank pain associated with a 3 to 4 mm obstructing UPJ calculus as a first-time stone former. -I counseled the patient on options for management. Since this was largely for pain control in the absence of acute kidney injury or signs of sepsis or anorexia, I explained that he could attempt a trial of passage or he could have a stent placed. I explained that given the size of the stone, he had likely a 60 to 70% chance of successful spontaneous passage. I explained that this would potentially take several weeks and would involve pain that would likely become significant on at least 2 or 3 additional occasions as the stone makes its way down the ureter into the bladder. I explained that the alternative would be to place a ureteral stent, but I counseled him on the potential for stent discomfort/stent pain, which some people find severe and difficult to tolerate. -After much discussion, he elected to proceed with a trial of passage and thus I counseled him on the following: Strain your urine for the stone. The nurses should provide him with a strainer. Alternate Tylenol (up to 1000 g every 6 hours maximum) every 4 hours with Motrin/ibuprofen (up to 800 mg every 8 hours maximum) for the pain. Dr. Perez will provide tramadol for breakthrough pain. MiraLAX recommended for constipation with milk of magnesia or Ex-Lax for breakthrough constipation. -Follow-up in my office in about 3 to 4 weeks time where if he fails to pass the stone, surgical intervention would be required. Approximately 25 to 30 minutes [id number] time spent with the patient with about 35 minutes total time spent in consultation and review of the record/imaging. Allergies No Known Allergies Allergy (Verified 04/13/20 04:26) Home Medications: NK [No Home Meds] 07/06/22 - Past Medical/Surgical History Diabetic: No -: Myodysplastic Syndrome -: Hernia Repair x5 -: Tonsilectomy -: right hand sx - Social History Alcohol use: No CD- Drugs: No Caffeine use: Yes Place of Residence: Home Physical Examination Temp Pulse Resp BP Pulse Ox 98.3 F 57 16 110/53 L 93 07/06/22 21:51 07/06/22 21:51 07/06/22 21:51 07/06/22 21:51 07/06/22 21:51 General: Alert, In no apparent distress, Oriented x3, Cooperative HEENT: Atraumatic, Normocephalic, PERRLA, Mucous membr. moist/pink Respiratory: Normal air movement Cardiovascular: Normal pulses, Normal S1 S2 Gastrointestinal: Soft and benign, Non-distended, No rebound, No guarding Neurological: Normal speech Conclusions/Impression: See HPI assessment and plan Time Spent Managing Pts care (In Minutes): 35
== END 2022-07-06 13:28 | disposition home or self-care (01) ==
LOC: ER 18:13 → ERHOLD 21:41 → 4TH 22:32
PROVIDERS: ADMIT Internal Medicine; ATTEND Internal Medicine
DX: N13.2 Hydronephrosis with renal and ureteral calculous obstruction (principal); F17.210 Nicotine dependence, cigarettes, uncomplicated; K59.00 Constipation, unspecified; D46.9 Myelodysplastic syndrome, unspecified; Z20.822 Contact with and (suspected) exposure to COVID-19; Z80.42 Family history of malignant neoplasm of prostate
CPT/HCPCS: 96365; 93005; 87040 ×2; 85025 ×2; 80048 ×2; 36415; 86900; 83735; 86850; 85610; 86901; 80076 ×2; 83605; 84484; 83690 ×2; 83880; 71275; 74175; 74018 ×2; 71045; 96375; 99284; 87811; Q9967; J2543; J3010; J7040; J7030 ×2; J2405 ×2; 81003; 81015; G0378